=== PATIENT | female | born 1930 | race Caucasian/White ===

== ENCOUNTER 2018-11-26 19:19 | Emergency (ER) | payer OTHER ==
[~2018-11-26] VITALS: Ht 162.6 cm; Wt 49.9 kg
[2018-11-26] MEDS ORDERED: LISINOPRIL10 MG PO (19:42)
[2018-11-26] MEDS ORDERED: FOLIC ACID1 MG PO (19:42)
[2018-11-26] MEDS ORDERED: BIOTIN0.5 GM MC (19:43)
[2018-11-26] MEDS ORDERED: METHOTREXATE 22.5 MG PO (19:43)
[2018-11-26] MEDS ORDERED: ALEVE220 M1 PO (19:44)
[2018-11-26 20:46] LABS: ABSOLUTE BASOPHILS 0.1 thou/uL (0.0-0.2); ABSOLUTE EOSINOPHILS 0.1 thou/uL (0.0-0.7); ABSOLUTE LYMPHOCYTES 1.7 thou/uL (0.8-5.3); ABSOLUTE MONOCYTES 0.3 thou/uL (0.0-1.2); ABSOLUTE NEUTROPHILS 3.6 thou/uL (1.6-8.1); BASOPHILS 1.3 %; EOSINOPHILS 2.3 %; HEMATOCRIT 30.8 % (37.0-47.0); HEMOGLOBIN 9.8 gm/dL (12.0-15.0); MCHC 31.9 g/dL (28.0-37.0); MCV 78.4 fL (80.0-100.0); MONOCYTES 5.6 %; MPV 7.3 fl. (7.2-11.1); NUCLEATED RBCS 0 /100WBC; PLATELET COUNT* 325 thou/uL (150-400); POLYS 61.8 %; RBC 3.93 mil/uL (4.20-5.00); RDW-CV 20.4 % (10.5-14.5); WBC 5.8 thou/uL (4.0-11.0)
[2018-11-26 20:57] LABS: ALBUMIN 3.3 g/dL (3.4-5.0); CALCIUM 8.9 mg/dL (8.5-10.1); CREATININE 0.9 mg/dL (0.6-1.3); POTASSIUM 4.2 mmol/L (3.5-5.1)
[2018-11-26 20:58] LABS: URINE BILIRUBIN NEGATIVE (Negative); URINE BLOOD NEGATIVE (Negative); URINE CLARITY CLEAR; URINE COLOR YELLOW; URINE GLUCOSE-RANDOM NEGATIVE (Negative); URINE KETONES NEGATIVE (Negative); URINE LEUKOCYTES-REFLEX TRACE (Negative); URINE NITRITE-REFLEX NEGATIVE (Negative); URINE PROTEIN NEGATIVE (Negative); URINE SPECIFIC GRAVITY 1.025 (1.005-1.030)
[2018-11-26 21:06] LABS: SQUAMOUS >10 Many /LPF (0-3)
[2018-11-26 21:07] LABS: BACTERIA-REFLEX 1-9 Few /HPF (None Seen); CRYSTALS None Seen /LPF (None Seen); HYALINE CASTS 4-10 Moderate /LPF (None Seen); MUCUS None Seen strn/LPF (None Seen); URINE WBC-REFLEX 6-15 Few /HPF (0-5)
[2018-11-26 21:08] LABS: URINE RBC 0-2 Rare /HPF (0-2)
[2018-11-26 21:13] LABS: ANISOCYTOSIS 2+; MICROCYTES 1+; OVALOCYTES 1+; PLATELET ESTIMATE ADEQUATE
[2018-11-26 21:26] LABS: TOTAL BILIRUBIN 0.5 mg/dL (<0.1-1.0); TOTAL PROTEIN 6.9 g/dL (6.4-8.2)
[2018-11-26] MEDS ORDERED: NORCO 5-325 TA1 EACH PO (21:36)
[2018-11-26] MEDS ORDERED: KEFLEX500 M1 PO (21:36)
[2018-11-26 21:53] LABS: ESR (SEDRATE) 37 mm/hr (0-30)
[2018-11-26 22:12] VITALS: BP 164/108
--- NOTE | 2018-11-27 10:44 | EKG ---
[place] [address] ELECTROCARDIOGRAM REPORT Name: DANIEL ZHU [id number] Admission: 11/26/18 Attend Phys: Discharge: 11/26/18 Date of : 34 Report #: [id number] THIS REPORT FOR: //name// [facility] ED Test Date: 2018-11-26 Test Time: 21:11:46 Pat Name: DANIEL ZHU Department: Room: Gender: F Post Anesthesia Nurse: SRIDHAR : 1930 Requested By: Raquel Vera Order Number: [id number] MD: Too Pop Measurements Intervals [place] Rate: 63 P: 54 NE: 235 QRS: -36 QRSD: 172 T: 150 QT: 484 QTc: 496 Interpretive Statements Sinus rhythm Atrial premature complex Prolonged NE interval Left bundle branch block No previous ECG available for comparison Electronically Signed On 11-27-2018 10:44:41 CDT by Too Pop [email or web address] <ELECTRONICALLY SIGNED> By: Too Pop MD, [facility] 11/27/18 1044 10 10 Too Pop MD, FACC /EPI
== END 2018-11-26 22:13 | disposition home or self-care (01) ==
LOC: M.ERS 19:19
PROVIDERS: Nurse Practitioner Family
DX: N39.0 Urinary tract infection, site not specified (principal); M25.572 Pain in left ankle and joints of left foot; R60.0 Localized edema; I10 Essential (primary) hypertension; Z88.8 Allergy status to other drugs, medicaments and biological substances

== ENCOUNTER 2018-11-30 21:56 | Inpatient (IN) | payer OTHER ==
[~2018-11-30] VITALS: Ht 157.5 cm; Wt 47.2 kg
--- NOTE | ~2018-11-30 | OP ---
[address] [address] OPERATIVE REPORT Name: DAINEL ZHU Room: [address] IN .R.#: [id number] Admission: 11/30/18 Attend Phys: Donta Chandler Discharge: Date of : 32 Report #: [id number] THIS REPORT FOR: //name// CC: Umang Ayers DATE OF SURGERY: 12/02/2018 PREOPERATIVE DIAGNOSIS: Right periprosthetic proximal femur fracture, displaced, closed. POSTOPERATIVE DIAGNOSIS: Right comminuted periprosthetic proximal femur fracture, comminuted, displaced, closed with a loose cemented stem. PROCEDURE: 1. Open reduction and internal fixation of right proximal femur periprosthetic fracture, comminuted, closed, displaced. 2. Revision nery hip arthroplasty from a cemented stem to diaphyseal press-fit stem. 3. Physician directed fluoroscopy. SURGEON: Ulisses Tang DO ASSISTANTS: 1. Tariq Camarena DO 2. Aidan Camarena DO ANESTHESIA: General. ANTIBIOTICS: Ancef IV preoperatively and we had redosed at 4-hour jorge luis. FLUIDS: 2000 mL lactated Ringer's, 2 units packed red blood cells, 500 mL albumin. URINARY OUTPUT: 250 mL. COMPLICATIONS: None. SPECIMENS: None. DRAINS: None. CONDITION: The patient is stable to PACU. IMPLANTS: Biomet Bren system with 16 x 190 mm distal stem with 80 mm A body +3 neck adapter and bipolar 50 mm. Man NCB periprosthetic plating system with troch attachment plate, locking screws into the troch, 2 [place] [address] OPERATIVE REPORT Name: DANIEL ZHU Racheal Room: [address] IN M.R.#: [id number] Admission: 11/30/18 Attend Phys: Donta Chandler Discharge: Date of : 32 Report #: [id number] distally and 1 unicortical locking distally, 1 unicortical locking proximally, 1 cable underneath the plate and 3 cables around the plate and bone. INDICATIONS: The patient is an 88-year-old female who was admitted to [facility] with a periprosthetic proximal femur fracture. I had long discussions with her and multiple family members of hers including children. We talked about treatment options, plan for surgery as well as the risks and complications associated. Please see my consultation note for full details of discussion we had, not only the night before surgery but today. After addressing any questions that they had in their stated satisfaction, we obtained their consent to proceed with surgery. DESCRIPTION OF PROCEDURE: I marked the right lower extremity in the presence of the operative team members. Everyone agreed this was correct. She was taken back to the operative suite where a briefing was performed indicating correct patient, procedure, site, antibiotic and the implants were present and sterile. We also confirmed that with her preoperative hemoglobin, we were going to be running 1 unit packed red blood cells with the second unit on hold. She was intubated and transferred over to the operative table. She was placed in the left lateral decubitus position with the right leg up. She was well padded and secured appropriately. Right lower extremity was then sterilely prepped and draped in standard fashion. Timeout was performed indicating correct patient, procedure, site and antibiotic and the implants were present and sterile and confirmed that we were running 1 unit of blood, put 1 on hold. All team members agreed. We marked out our incision. We used her previous incision. This incision was cheated quite posteriorly. We therefore curved this up anteriorly for access to the fracture site as we would need to be able to gain reduction of this. Scalpel was taken through skin. Dissection was taken down, maintaining hemostasis. The IT band and fascial layers incised through this. Midvastus approach was used to gain access to the fracture. She had already buttonholed through this and we were seeing one of the bone fragments. As we continued this down, we visualized that there was a spiral component. The spiral component went quite distal. This was not appreciated on the preoperative films. We continued dissecting proximally. We can see our stem. It became readily identifiable that there was a third fracture fragment. The anterior piece was actually a completely separate piece from the posterior aspect and there was a fracture running all the way up to the trochanter. This split the trochanter into 2 pieces. The stem was grossly unstable and would need to be revised. We therefore performed an anterolateral approach for a standard. Capsule was incised. T capsulotomy performed. The hip was able to be dislocated and the stem again was grossly unstable and easily removed, was a cemented stem and this did have some bone in the proximal segment being attached to the cemented stem that had already happened prior to us getting in. With the stem removed on the back table, we saw the size of the bipolar which was 50 mm. At that point in time, we used a handheld bur and a combination of careful rongeur to remove the cement that was attached to the femur. Once we had completely cleared the canal [address] [address] OPERATIVE REPORT Name: DANIEL ZHU Room: [address]#: [id number] Admission: 11/30/18 Attend Phys: Donta Chandler Discharge: Date of : 32 Report #: [id number] of all remaining cement, we thoroughly irrigated with normal saline throughout the entirety of the procedure so as the bur would not get too hard along the bone. Bone was then removed. We then irrigated with normal saline throughout the entirety of the surgical field. We were able to place catjz-vg-vefer clamps to hold our reduction. With our reduction being confirmed on multiplanar C-arm imaging to be excellent, we then placed a cable to hold the reduction and we then crimped that cable in place and placed the grommet along anteriorly as we would be leaving the soft bone and the plate would be placed over it. ____ this with a combination of zmgih-fv-mwcua clamps with the remaining comminuted segments proximally, we were able to begin pinning. We placed a trial 16 reamer. This had excellent chatter and was ____ stem. We brought in the C-arm and confirmed on multiplanar C-arm imaging that that stem was appropriate in size and it was well passed at least our main fracture fragment where the mid aspect of the spiral component would be and passed this; however, that spiral component continued down quite distally. There would be no stem that would adequately pass all with it in its entirety. We then through the final Bren 16 mm x 190 mm onto the back table, irrigated out the canal with normal saline and then cleaned this. It sat down the exact same location as our reaming, which was that 80 mm of the top of the trochanter. We therefore reamed for an A body. This was appropriate in size and placed an A 80 mm body trial, engaged the screw, placed in the appropriate amount of version. I then trialled our head and neck. A standard had a good range of motion; however, with deep flexion and external rotation, it did pop out. We would therefore need something higher likely. The A 80 mm body was appropriate, though. We therefore removed the trial components through the final A 80 mm body on to the back table. We engaged this and seated it down appropriately, getting our version appropriate. Once this was in appropriate position, we then engaged the screw using the torque limiter and it was fully engaged appropriately. At that point in time, we then trialled a +3 adapter with 50 mm bipolar. This had good stability, reduced nicely. Full range of motion was taken and there was no instability throughout any range of motion including deep flexion and external rotation and was stable in regards to Shuck testing. At that point in time, we then dislocated the hip and through the final +3 neck adapter and 50 mm head on to the back table, this was engaged with the Tanner taper, confirmed by not being able to remove. At this point in time, all final components were in place. We reduced the hip. With all final components in place, we took the hip through range of motion and was pulled throughout all arcs with no instability whatsoever. Shuck test was appropriate. We brought in C-arm and confirmed that the hip was well reduced. We also took the hip through range of motion under live C-arm fluoroscopy and there was no levering or evidence of instability under direct fluoroscopy visualization. Due to the fact that this was a very unstable periprosthetic fracture with comminution and extending distally, we therefore went ahead and applied our NCB periprosthetic femoral plate. We did have to use a tabletop villalpando as I could not bend this so that we could get around the metaphyseal flare for a screw into the distal femur ____ proximally. Once we performed that bending, we then pinned it in position, began by soaking [address] [place] [address] OPERATIVE REPORT Name: DANIEL ZHU Room: [address] IN [facility]#: [id number] Admission: 11/30/18 Attend Phys: Donta Chandler Discharge: Date of : 32 Report #: [id number] down to bone distally. The screw had adequate purchase. Our second cortical screw had adequate purchase as well. We then aimed our third fan blade aligner so that we could span the entire femur and this was placed in a unicortical fashion with locking end cap placed. At that point in time, we then passed carefully our remaining cables, passed them, tensioned them down appropriately, fashioned our trochanter plate once ____ plate and drilled and placed appropriate locking screws there. These did get into the trochanter and stabilize this quite nicely. We also reinforced with suture. We brought in final C-arm imaging and showed excellent placement of our hardware. Great fracture reduction and placement of our prosthesis. We saved final images of the C-arm. We irrigated throughout with normal saline. We reclosed our capsule layer with #1 Vicryl oilhtc-il-spqpc interrupteds for an excellent closure. The gluteus were attached back onto the trochanter as well as through the plate with #5 Tycron through bone sutures. This laid down over quite nicely showing that we had restored her normal length and not given her any increased offset that would be outside of her normal anatomy. With that tied down, we oversewed with #1 Vicryl. We also oversewed around the trochanter as that bone was quite tenuous and even though there were locking screws into this, we reinforced suture through the plate. We reirrigated with normal saline and closed our vastus deep fascial layers with 0 Vicryl thkwot-bu-rqlis interrupted. IT band and fascial layer was closed with 0 Vicryl dsahnr-ah-oisiw interrupted and oversewn with #1 Stratafix barbed suture. Irrigated subcutaneous layer with normal saline and closed this with 2-0 Monocryl buried deep and eva for skin. Debriefing was performed where we confirmed the procedure, blood loss and that all counts were correct and final. All team members agreed. The patient was extubated and taken to PACU. She was overall stable. I spoke with multiple family members, addressed any questions they had. They were very thankful for my time and efforts and appreciated everything I have done. She was resting in the PACU, continued to have stable vital signs. Neurovascularly, she was intact in that extremity. PACU films showed stable internal fixation, reduction and prosthesis. No fractures or dislocations seen. She will be toe touch weightbearing. DVT prophylaxis will be pharmacologic and mechanical. My recommendation is that she go to the ICU. Directly contacted the admitting hospitalist, Dr. Beatty, and discussed with him our surgical findings and the fluids given during surgery as well as urinary output and he came to evaluate the patient in the PACU and agreed with her ICU status. I made sure the family members, nursing staff as well as Dr. Beatty have access to my personal cell phone number and encouraged them to call me any time with questions or concerns. By: [id number] Tang DO /huang
[~2018-11-30 21:56] MED LIST: ALEVE220 M1 PO; BIOTIN0.5 GM MC; FOLIC ACID1 MG PO; KEFLEX500 M1 PO; LISINOPRIL10 MG PO; METHOTREXATE 22.5 MG PO; NORCO 5-325 TA1 EACH PO
[2018-11-30 21:57] VITALS: BP 164/76
[2018-11-30 22:40] LABS: ABSOLUTE EOSINOPHILS 0.1 thou/uL (0.0-0.7); ABSOLUTE LYMPHOCYTES 1.2 thou/uL (0.8-5.3); ABSOLUTE MONOCYTES 0.6 thou/uL (0.0-1.2); ABSOLUTE NEUTROPHILS 4.6 thou/uL (1.6-8.1); BASOPHILS 0.7 %; EOSINOPHILS 2.2 %; HEMATOCRIT 29.5 % (37.0-47.0); HEMOGLOBIN 9.4 gm/dL (12.0-15.0); LYMPHOCYTES 18.9 %; MCH 25.2 pg (26.0-34.0); MCV 78.7 fL (80.0-100.0); MONOCYTES 8.6 %; MPV 7.5 fl. (7.2-11.1); NUCLEATED RBCS 0 /100WBC; PLATELET COUNT* 295 thou/uL (150-400); POLYS 69.6 %; RBC 3.75 mil/uL (4.20-5.00); RDW-CV 20.5 % (10.5-14.5); WBC 6.6 thou/uL (4.0-11.0)
[2018-11-30 22:59] LABS: PROTIME 10.7 Seconds (9.20-11.50)
[2018-11-30 23:00] LABS: ANION GAP 4 mmol/L (7-16); BUN 25 mg/dL (7-18); CALCIUM 8.4 mg/dL (8.5-10.1); CHLORIDE 106 mmol/L (98-107); CO2 27 mmol/L (21-32); CREATININE 1.4 mg/dL (0.6-1.3); GLUCOSE 116 mg/dL (70-99); POTASSIUM 4.1 mmol/L (3.5-5.1); SODIUM 137 mmol/L (136-145); TROPONIN-I LEVEL <0.06 ng/mL (<0.06)
[2018-11-30 23:02] LABS: ALKALINE PHOSPHATASE 129 U/L (46-116); SGOT 17 U/L (15-37); SGPT 14 U/L (30-65); TOTAL BILIRUBIN 0.4 mg/dL (<0.1-1.0); TOTAL PROTEIN 6.3 g/dL (6.4-8.2)
[2018-11-30 23:11] LABS: ANISOCYTOSIS 2+; MICROCYTES 1+; OVALOCYTES Occasional; PLATELET ESTIMATE ADEQUATE
[2018-11-30 23:12] LABS: POLYCHROMASIA Occasional
[2018-12-01 00:50] VITALS: BP 150/70
[2018-12-01 01:10] VITALS: BP 145/60
--- NOTE | 2018-12-01 05:15 | NUR ---
PT ARRIVED ON UNIT AT 0100 ALERT AND ORIENTED VSS. PT ASSISTED TO BED ORIENTED TO SURROUNDINGS. PT HAD MEI PLACED AND BUCKS TRACTION HAD PAIN MEDS TWICE THEN SLEPT WILL CONTINUE PLAN OF CARE.
[2018-12-01 08:00] VITALS: BP 135/56
[2018-12-01 08:06] LABS: URINE BILIRUBIN NEGATIVE (Negative); URINE BLOOD TRACE (Negative); URINE CLARITY CLEAR; URINE COLOR YELLOW; URINE GLUCOSE-RANDOM NEGATIVE (Negative); URINE KETONES TRACE (Negative); URINE LEUKOCYTES-REFLEX NEGATIVE (Negative); URINE NITRITE-REFLEX NEGATIVE (Negative); URINE PROTEIN NEGATIVE (Negative); URINE UROBILINOGEN 0.2 E.U./dl (0.2-1.0)
--- NOTE | 2018-12-01 15:48 | NUR ---
PT.IN SURGERY THIS AFTERNOON. CM WILL SEE TOMORROW.
--- NOTE | 2018-12-01 17:08 | EKG ---
[place] [address] ELECTROCARDIOGRAM REPORT Name: DANIEL ZHU Room: [address] ADM IN .R.#: [id number] Admission: 11/30/18 Attend Phys: Donta Chandler Discharge: Date of : 32 Report #: [id number] THIS REPORT FOR: //name// [facility] ED Test Date: 2018-11-30 Test Time: 23:22:45 Pat Name: DANIEL ZHU Department: Room: [facility] Gender: F Assurance Analyst: SANGITA : 1930 Requested By: Nicole Chiu Order Number: [id number] MD: Spencer Escobar Measurements Intervals [place] Rate: 62 P: 55 HI: 248 QRS: -34 QRSD: 169 T: 147 QT: 496 QTc: 504 Interpretive Statements Sinus rhythm Prolonged HI interval Left bundle branch block Compared to ECG 11/26/2018 21:11:46 Atrial premature complex(es) no longer present Electronically Signed On 12-01-2018 17:08:37 CDT by Spencer Escobar [email or web address] <ELECTRONICALLY SIGNED> By: Spencer Escobar MD, FACC 12/01/18 1708 2322 [id number] Spencer Escobar MD, [facility] /EPI
--- NOTE | 2018-12-01 19:01 | NUR ---
PT REMAINED A&Ox4 THROUGHOUT SHIFT. SURGERY NOT DONE TODAY, SCHEDULED FOR THE AM. REMAINED ON BEDREST WITH BUCKS TRACTION IN PLACE. PAIN CONTROLLED WITH FENTANYL. IV L FA PATENT, INFUSING. DIET TOLERATED. NPO AFTER MIDNIGHT. MEI PATENT. HOURLY ROUNDING COMPLETE. FALL PRECAUTIONS IN PLACE.CALL LIT WITHIN REACH.
[2018-12-01 20:15] VITALS: BP 152/65
[2018-12-02] VITALS (16 sets, daily range): BP systolic 114–155; BP diastolic 50–79
--- NOTE | 2018-12-02 00:22 | NUR ---
INITAL ASSESMENT COMPLETED AT 2014. PT REMAINS IN BUCKS TRACTION FOR FRACTURE OF RIGHT FEMUR. PT NPO AFTER MIDIGHT FOR ORIF OF RIGHT FEMUR. PT RECIEVING IV FENTANYL FOR PAIN WITH GOOD RESULTS. CALL LIGHT IN REACH, PT USING PROPERLY.
[2018-12-02 04:20] LABS: ABSOLUTE EOSINOPHILS 0.1 thou/uL (0.0-0.7); ABSOLUTE MONOCYTES 0.2 thou/uL (0.0-1.2); ABSOLUTE NEUTROPHILS 3.8 thou/uL (1.6-8.1); BASOPHILS 0.9 %; HEMATOCRIT 22.4 % (37.0-47.0); LYMPHOCYTES 18.9 %; MCH 25.1 pg (26.0-34.0); MCHC 31.9 g/dL (28.0-37.0); MCV 78.6 fL (80.0-100.0); MONOCYTES 4.7 %; MPV 7.3 fl. (7.2-11.1); NUCLEATED RBCS 0 /100WBC; PLATELET COUNT* 230 thou/uL (150-400); POLYS 74.5 %; RBC 2.85 mil/uL (4.20-5.00); RDW-CV 20.4 % (10.5-14.5); WBC 5.1 thou/uL (4.0-11.0)
[2018-12-02 04:38] LABS: CALCIUM 8.2 mg/dL (8.5-10.1); CREATININE 0.7 mg/dL (0.6-1.3); HEMOGLOBIN 7.1 gm/dL (12.0-15.0); POTASSIUM 4.1 mmol/L (3.5-5.1)
--- NOTE | 2018-12-02 05:44 | NUR ---
PT NPO AFTER MIDNIGHT FOR SURGURY THIS AM. PT MAINTAINED IN BUCKS TRACTION THROUGHOUT SHIFT. PT'S HEART RATE, BLOOD PRESSURE AND O2 SAT WITHIN NORMAL LIMITS. PT AFEBRILE DURING SHIFT. PT RECIEVING IV FENTANYL FOR PAIN WITH GOOD RESULTS. NO ACUTE CHANGES, WILL CONTINUE TO MONITOR.
[2018-12-02 06:16] LABS: OVALOCYTES 1+; PLATELET ESTIMATE ADEQUATE
[2018-12-02 06:17] LABS: ANISOCYTOSIS 1+; MICROCYTES 1+; POIKILOCYTOSIS 1+; POLYCHROMASIA Occasional
--- NOTE | 2018-12-02 13:20 | NUR ---
UNABLE TO ASSESS PT, WENT FOR SURGERY BEFORE SHIFT CHANGE AND WILL BE TANSFERING FROM ICU STRAIGHT FROM PACU.
[2018-12-02 14:11] LABS: HEMATOCRIT 23.2 % (37.0-47.0); HEMOGLOBIN 7.5 gm/dL (12.0-15.0)
[2018-12-02 14:50] LABS: CREATININE 0.8 mg/dL (0.6-1.3); POTASSIUM 4.7 mmol/L (3.5-5.1)
--- NOTE | 2018-12-02 18:13 | NUR ---
12/02 Days: Transfer from the PACU post Right hip revision arthroplasty with femur fracture. To ICU for close monitoring d/t soft B/P and fair blood loss. 2 unit PRCB were given in OR. Patient stable, vitals within normal range. Repeat H&H at 2000 and in the am. PRN Levo if needed on eMAR.
[2018-12-02 20:12] LABS: HEMOGLOBIN 8.4 gm/dL (12.0-15.0)
[2018-12-03] VITALS (14 sets, daily range): BP systolic 94–139; BP diastolic 38–60
[2018-12-03 04:28] LABS: HEMATOCRIT 20.8 % (37.0-47.0); MCH 26.8 pg (26.0-34.0); MCHC 32.7 g/dL (28.0-37.0); MCV 81.8 fL (80.0-100.0); MPV 7.5 fl. (7.2-11.1); RBC 2.54 mil/uL (4.20-5.00); RDW-CV 19.1 % (10.5-14.5); WBC 8.7 thou/uL (4.0-11.0)
[2018-12-03 05:04] LABS: ALBUMIN 1.9 g/dL (3.4-5.0); CALCIUM 7.2 mg/dL (8.5-10.1); MAGNESIUM 1.6 mg/dL (1.8-2.4); POTASSIUM 4.3 mmol/L (3.5-5.1); TOTAL BILIRUBIN 0.6 mg/dL (<0.1-1.0); TOTAL PROTEIN 4.5 g/dL (6.4-8.2)
[2018-12-03 05:24] LABS: HEMOGLOBIN 6.8 gm/dL (12.0-15.0)
--- NOTE | 2018-12-03 07:00 | NUR ---
Pt's Hgb 6.8 this am. VSS. 1 unit PRBCs ordered to be transfused, and pt transferred to 2E, room 226. Dc'd from unit per bed. Pt's dtrs informed of transfer and updated on pt status.
--- NOTE | 2018-12-03 10:16 | NUR ---
MEDICARE CONTACT SPECIALIST SPOKE TO THE PATIENT TO DISUCSS HER HOME SITUATION, DISCHARGE PLANNING, AND TO INFORM OF THE ROLE OF CM. PATIENT ALERT AND ORIENTED. 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 PATIENT RESIDES AT HOME WITH HER DTR AND THE PATIENT INFORMS THAT HER DTR WORKS HERE IN THE HOSPITAL. PATIENT'S DTR ASSIST WITH TRANSPORTATION TO APPTS AND IS ABLE TO ASSIST HER AT D/C NEEDED. PATIENT OWNS 0 DME. PATIENT HAS A HX OF HH IN THE PAST AFTER A PREVIOUS HIP SX. PATIENT HAS NO HX OF SNF. PATIENT INFORMS THAT SHE IS OPEN TO ACUTE INPATIENT REHAB HERE IN THE HOSPITAL, OR SKILLED AT D/C IF NEEDED. D/C REIMBURSEMENT ANALYST CONTACTED THE CDA TEACHER HERE IN THE HOSPITAL TO HAVE HER REVIEW THE PATIENT TO SEE IF SHE MAY BE APPROPRIATE FOR ACUTE REHAB AT D/C. CM WILL REMAIN AVAILABLE TO ASSIST AND FOLLOW NEEDED.
[2018-12-03 12:08] LABS: HEMATOCRIT 22.8 % (37.0-47.0); HEMOGLOBIN 7.5 gm/dL (12.0-15.0)
--- NOTE | 2018-12-03 20:30 | NUR ---
I ASSUMED CARE OF THE PATIENT AT 0700. SHE IS ALERT AND ORIENTED X4 AND IS ON BEDREST. SHE HAS A HIP ABDUCTOR IN PLACE. HOURLY ROUNDING OCCURRED AND PATIENT NEEDS WERE MET. PAIN IS MANAGED WITH PRN MEDS. SHE HAD NEW XRAYS TODAY AND LEFT FOOT IS NOT BROKEN. ICE PACKS ARE IN PLACE AND SHE IS BEING REPOSITIONED EVERY 2 HOURS. BED IS IN THE LOW LOCKED POSITION AND CALL LIGHT IS IN REACH. WILL CONTINUE TO MONITOR. BLOOD GIVEN AND CHARTED IN INTERVENTIONS. FAMILY IS AT THE BEDSIDE MOST OF THE DAY. MEPLEX ON RIGHT HIP IS CLEAN/DRY/INTACT.
[2018-12-04 04:00] VITALS: BP 136/53
--- NOTE | 2018-12-04 04:48 | NUR ---
PT CARE ASSUMED AT 1930. ALERT AND ORIENTED X4. SAT MAINTAINED IN RA. CALL LIGHT WITHIN REACH AND BED IN LOW POSITION. C/O PAIN, MEDICATION GIVEN PER EMAR. DRESSING SITE C/D/I. MEI IN PLACE AND DRAINING. HOURLY ROUNDING DONE FOR PT SAFETY.
[2018-12-04 04:49] LABS: HEMATOCRIT 21.8 % (37.0-47.0); HEMOGLOBIN 7.2 gm/dL (12.0-15.0); MCH 27.1 pg (26.0-34.0); MCV 82.2 fL (80.0-100.0); MPV 7.7 fl. (7.2-11.1); RBC 2.65 mil/uL (4.20-5.00); RDW-CV 17.8 % (10.5-14.5); WBC 6.1 thou/uL (4.0-11.0)
[2018-12-04 05:12] LABS: CALCIUM 7.5 mg/dL (8.5-10.1); CREATININE 0.7 mg/dL (0.6-1.3); MAGNESIUM 1.8 mg/dL (1.8-2.4); POTASSIUM 3.7 mmol/L (3.5-5.1)
[2018-12-04 09:19] VITALS: BP 143/56
[2018-12-04 12:19] VITALS: BP 141/61
[2018-12-04 15:01] VITALS: BP 147/56; BP 154/70; BP 158/62; BP 158/66
[2018-12-04 16:00] VITALS: BP 151/53
--- NOTE | 2018-12-04 17:24 | NUR ---
PT REMAINED ALERT AND ORIENTED THROUGHOUT SHIFT. VITALS STABLE. RECEIVING 1 UNIT OF BLOOD, INFUSING CURRENTLY, TOLERATING. IV IN R FA PATENT. MEI PATENT. DRESSING REMAINED CLEAN, DRY AND INTACT. ABDUCTOR PILLOW IN PLACE. PAIN CONTROLLED WITH OXY IR. MAINTAINED TOE TOUCH WB ON R LEG. FAMILY IN ROOM DURING SHIFT. FALL PRECAUTIONS IN PLACE. CALL LIGHT WITHIN REACH. WILL CONTINUE TO MONITOR.
[2018-12-04 18:57] LABS: HEMATOCRIT 28.3 % (37.0-47.0)
[2018-12-04 18:59] LABS: HEMOGLOBIN 9.7 gm/dL (12.0-15.0)
[2018-12-04 20:00] VITALS: BP 165/65
[2018-12-05] VITALS: BP 151/65
[2018-12-05 03:54] VITALS: BP 150/74
--- NOTE | 2018-12-05 04:52 | NUR ---
PT CARE ASSUMED AT 1930. ALERT AND ORIENTED X4. SAT MAINTAINED IN RA. DRESSING C/D/I. CALL LIGHT WITHIN REACH AND BED IN LOW POSITION. C/O PAIN, MEDICATION GIVEN PER EMAR. HOURLY ROUNDING DONE FOR PT SAFETY.
[2018-12-05 04:56] LABS: HEMATOCRIT 27.6 % (37.0-47.0); HEMOGLOBIN 9.5 gm/dL (12.0-15.0); MCH 28.5 pg (26.0-34.0); MCHC 34.3 g/dL (28.0-37.0); MPV 7.5 fl. (7.2-11.1); RBC 3.32 mil/uL (4.20-5.00); RDW-CV 17.6 % (10.5-14.5); WBC 7.4 thou/uL (4.0-11.0)
[2018-12-05 05:15] LABS: CALCIUM 7.7 mg/dL (8.5-10.1); CREATININE 0.6 mg/dL (0.6-1.3); MAGNESIUM 1.7 mg/dL (1.8-2.4); POTASSIUM 3.3 mmol/L (3.5-5.1)
--- NOTE | 2018-12-05 11:36 | NUR ---
CONTINUE TO FOLLOW, MET WITH PT TO DISCUSS DC PLAN/SNF. PT WANTED CM TO TALK WITH HER DTR/ELA [phone]. CALLED AND LEFT VMAIL.
[2018-12-05 12:53] VITALS: BP 144/65
[2018-12-05 16:12] VITALS: BP 139/77
--- NOTE | 2018-12-05 18:54 | NUR ---
PT VSS THIS SHIFT RUNNING SR, BBB, WITH PVC'S ON THE MONITOR. PT HAS HAD SOME HYPOTENSION THIS ADMISSION. PT TOLERATING RA THIS SHIFT. PT HAS MINIMAL PAIN RESOLVED BY PAIN MEDICATIONS. PT PASSING FLATUS THIS SHIFT. PT HAS AMBULATION AND WEIGHT RESTRICTIONS ORDERED AND IS A Q2 TURN. PT HAS SWELLING TO LLE. SURGERY DRESSING IS CDI WITH SCANT DRAINAGE NOTED THIS SHIFT, ORDERS TO MAINTAIN DRESSING PER ORTHO. PT TO BE EVALUATED BY REHAB. PT FAMILY STATES IT IS OKAY TO CALL AT ANY TIME OF THE DAY/NIGHT IF PT WANTS TO SPEAK WITH THEM. PT HAD ELECTROLYTES REPLACED AND NEEDS ANOTHER DOSE OF MAG 400 MG THIS EVENING WITH A REDRAW IN THE MORNING. HOURLY ROUNDING MAINTAINED
[2018-12-05 20:30] VITALS: BP 131/72
[2018-12-06] VITALS: BP 140/75
[2018-12-06 04:00] VITALS: BP 146/78
--- NOTE | 2018-12-06 04:53 | NUR ---
PT CARE ASSUMED AT 1930. SAT MAINTAINED IN RA. ALERT AND ORIENTED X4. CALL LIGHT WITHIN REACH AND BED IN LOW POSITION. ABDUCTOR PILLOW IN PLACE. DENIES PAIN AND SOB. TALKED WITH PT'S DAUGHTER, SAYS WE CAN CALL HER ANYTIME IF HER MOTHER WANTS TO TALK WITH THEM. HOURLY ROUNDING DONE FOR PT SAFETY.
[2018-12-06 12:00] VITALS: BP 142/77
--- NOTE | 2018-12-06 18:32 | NUR ---
PT VSS THIS SHIFT AND PAIN WELL CONTROLLED. DR JOSÉ RETURNED PAGE THIS SHIFT TO ADDRESS AND CLARIFY ORDERS REGARDING ABDUCTION PILLOW AND AMBULATION. AN ANKLE BRACE WAS ORDERED AND BROUGHT FOR PT DUE TO INCREASED PAIN WITH STANDING. PT WAS PROVIDED WITH BOWEL MEDICATIONS THIS SHIFT AND SHE WAS ABLE TO HAVE A BOWEL MOVEMENT. DR SINGH WROTE TO Racheal/Nik MEI BUT CONCERNS ADDRESSED WITH PT AMBULATION STATUS FROM THIS RN , PT FAMILY AND PHYSICAL THERAPY. DR GRZEGORZ GARCIAAY FOR HAMIDA TO REMAIN AT THIS TIME UNTIL PHYSICAL THERAPY FEELS SHE CAN PIVOT BETTER TO THE COMMODE, ORDER PLACED. ISOLATION AND HOURLY ROUNDING MAINTAINED THIS SHIFT. WILL CONTINUE TO MONITOR AND ASSESS.
[2018-12-06 20:10] VITALS: BP 148/77
--- NOTE | 2018-12-06 21:19 | NUR ---
PT CARE ASSUMED AT 1930. ALERT AND ORIENTED X4. CALL LIGHT WITHIN REACH AND BED IN LOW POSITION. SAT MAINTAINED IN RA. MEI IN PLACE AND DRAINING. HIP ABDUCTOR PILLOW IN PLACE. PT TRANSFERRED TO AT 2099.
[2018-12-06 21:20] VITALS: BP 147/71
--- NOTE | 2018-12-07 05:39 | NUR ---
PT TRANSFERED TO ROOM 310, REPORT RECIEVED FROM TOPOGRAPHIC COMPUTATOR. PT ORIENTED TO ROOM, CALL LIGHT SHOWN, PT STATED UNDERSTANDING. PTS FAMILY REMAINED AT BEDSIDE. ASSESSMENT DOCUMENTED. MEDS GIVEN PER E-MAR. IV PATENT, FLUIDS INFUSING. PT REPORTED NO PAIN OR NAUSEA THIS SHIFT. HIP PRECAUTIONS MAINTAINED. DRESSING REMAINED DRY AND INTACT, WITH MINIMAL DRAINAGE. WILL CONTINUE WITH PLAN OF CARE.
[2018-12-07 09:00] VITALS: BP 143/68
--- NOTE | 2018-12-07 14:30 | NUR ---
Nutrition: Pt assessed for LOS. Admitted with femur FX. Chopped diet. Wt: 103#. BG ok, alb 1.9, prealb 15.3. Increased nutrient needs R/T protein AEB labs above. RD ordered Beneprotein bid for added protein. Consider Mild risk.
[2018-12-07 16:22] VITALS: BP 128/69
--- NOTE | 2018-12-07 16:36 | NUR ---
SW called pt dtr this morning to discuss dc planning and arranged for pt dtr to call SW sometime after 3 pm to be able to meet with 2 of pt's dtrs. JESUS MANUEL discussed inpt rehab consult with admissions rehab department manager, Obdulia, and the consult is still pending due to pt ability to participate in therapies. SW to continue to follow to assist with safe dc planning.
--- NOTE | 2018-12-07 19:01 | NUR ---
PATIENT HAS BEEN A/O X 4, FORGETFUL AT TIMES. MEDICATED FOR PAIN X 1 WITH GOOD RELIEF. PATIENT UP TO BSC WITH MAX ASSIST. TTWB TO RIGHT LEG. DRESSING TO RIGHT LEG INTACT. MEI PATENT. SEEN BY PT/OT/ST THIS SHIFT. TURNED EVERY 2 HOURS. VITALS STABLE. FAMILY AT BEDSIDE. HOURLY ROUNDING COMPLETED. CALL LIGHT WITHIN REACH. WILL CONTINUE WITH PLAN OF CARE.
[2018-12-07 21:00] VITALS: BP 149/59
[2018-12-08 04:40] LABS: ABSOLUTE BASOPHILS 0.1 thou/uL (0.0-0.2); ABSOLUTE EOSINOPHILS 0.3 thou/uL (0.0-0.7); ABSOLUTE LYMPHOCYTES 1.1 thou/uL (0.8-5.3); ABSOLUTE MONOCYTES 0.7 thou/uL (0.0-1.2); ABSOLUTE NEUTROPHILS 4.8 thou/uL (1.6-8.1); BASOPHILS 1.3 %; EOSINOPHILS 3.6 %; HEMATOCRIT 27.9 % (37.0-47.0); HEMOGLOBIN 9.3 gm/dL (12.0-15.0); LYMPHOCYTES 15.2 %; MCH 27.5 pg (26.0-34.0); MCHC 33.2 g/dL (28.0-37.0); MCV 82.7 fL (80.0-100.0); MONOCYTES 10.4 %; MPV 7.3 fl. (7.2-11.1); NUCLEATED RBCS 0 /100WBC; POLYS 69.5 %; RBC 3.37 mil/uL (4.20-5.00); RDW-CV 17.9 % (10.5-14.5); WBC 6.9 thou/uL (4.0-11.0)
[2018-12-08 04:43] LABS: CALCIUM 7.7 mg/dL (8.5-10.1); CREATININE 0.6 mg/dL (0.6-1.3); PLATELET COUNT* 329 thou/uL (150-400); POTASSIUM 3.2 mmol/L (3.5-5.1)
--- NOTE | 2018-12-08 06:13 | NUR ---
PATIENT SLEPT MOST OF THE NIGHT. PATIENT WAS TURNED ABOUT EVERY TWO HOURS. MEI REMAINS IN PLACE TO DEPENDENT DRAIN. DRESSING TO RIGHT HIP REMAINS INTACT. PATIENT WAS GIVEN PAIN MEDICINE ONCE THIS SHIFT. WILL CONTINUE TO MONITOR.
[2018-12-08 07:25] VITALS: BP 137/55
--- NOTE | 2018-12-08 14:02 | NUR ---
Obdulia with [facility] inpt rehab informed SW this morning that pt was denied inpt rehab due to pt not likely to be able to tolerate 3 hours of inpt therapies a day. JESUS MANUEL met with pt and discussed other safe dc plan options and pt said she would rather go to SNF and did not feel comfortable or safe returning home yet alone at times. JESUS MANUEL called and discussed above with pt dtr Vivi as well. Both pt and dtr agree that pt would dc to SNF; pt/family preference for [facility]. JESUS MANUEL faxed referral to [facility] ph [phone] fax [phone]. SW to continue to follow to assist with safe dc planning and SNF placement.
[2018-12-08 16:51] VITALS: BP 137/68
--- NOTE | 2018-12-08 19:48 | NUR ---
PATIENT HAS BEEN A/O X 4 THIS SHIFT, SLIGHTLY FORGETFUL AT TIMES. PATIENT MEDICATED FOR PAIN X 2 TODAY WITH GOOD EFFECT. UP WITH TTWB TO RIGHT LEG. PARTICIPATED WITH THERAPIES THIS SHIFT. UP IN CHAIR FOR MOST OF SHIFT. MEI PATENT AND DRAINING. PATIENT USED I.S. THIS SHIFT WITH ASSIST OF RN. PATIENT'S FAMILY AT BEDSIDE THIS SHIFT. FALL PRECAUTIONS IN PLACE. HOURLY ROUNDING COMPLETED. CALL LIGHT WITHIN REACH. WILL CONTINUE WITH PLAN OF CARE.
[2018-12-09 04:07] VITALS: BP 137/73
--- NOTE | 2018-12-09 05:08 | NUR ---
PATIENT SLEPT WELL DURING THIS SHIFT. PT WITH SALINE LOCK IN RT AC. PT WITH REDDENED BOTTOM; PT REPOSITIONED Q2H BUT PT DID REFUSE AT TIMES. PT WITH MEI TO DEPENDENT DRAIN WITH YELLOW URINE. PT ON ROOM AIR. PT DENIES NEEDS AT THIS TIME. FREQUENTLY USED ITEMS AND CALL LIGHT WITHIN REACH. SIDERAILS UPX4 AND BED ALARM ON. WILL CONTINUE TO MONITOR.
[2018-12-09 07:15] VITALS: BP 155/76
[2018-12-09] MEDS ORDERED: ZOLOFT25 MG PO (09:09)
--- NOTE | 2018-12-09 09:41 | NUR ---
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 [facility] INFORMS THAT INSURANCE AUTH HAD NOT BEEN RECEIVED AT THIS TIME. D/C ONCOLOGY NURSE NAVIGATOR FAXED UPDATED PT/OT NOTES. CM WILL REMAIN AVAILABLE TO ASSIST AND FOLLOW NEEDED.
[2018-12-09 10:27] LABS: ABSOLUTE BASOPHILS 0.2 thou/uL (0.0-0.2); ABSOLUTE EOSINOPHILS 0.4 thou/uL (0.0-0.7); ABSOLUTE LYMPHOCYTES 1.6 thou/uL (0.8-5.3); ABSOLUTE MONOCYTES 0.9 thou/uL (0.0-1.2); ABSOLUTE NEUTROPHILS 8.4 thou/uL (1.6-8.1); BASOPHILS 1.4 %; EOSINOPHILS 3.6 %; HEMATOCRIT 33.9 % (37.0-47.0); HEMOGLOBIN 10.9 gm/dL (12.0-15.0); LYMPHOCYTES 14.1 %; MCH 27.2 pg (26.0-34.0); MCHC 32.3 g/dL (28.0-37.0); MCV 84.2 fL (80.0-100.0); MONOCYTES 7.5 %; MPV 6.9 fl. (7.2-11.1); NUCLEATED RBCS 0 /100WBC; POLYS 73.4 %; RBC 4.03 mil/uL (4.20-5.00); RDW-CV 18.5 % (10.5-14.5); WBC 11.4 thou/uL (4.0-11.0)
[2018-12-09 10:28] LABS: PLATELET COUNT* 579 thou/uL (150-400)
[2018-12-09 10:42] LABS: CALCIUM 8.9 mg/dL (8.5-10.1); CREATININE 0.7 mg/dL (0.6-1.3); POTASSIUM 3.7 mmol/L (3.5-5.1)
[2018-12-09 11:50] VITALS: BP 129/65
[2018-12-09 15:05] VITALS: BP 140/64
--- NOTE | 2018-12-09 18:58 | NUR ---
PATIENT HAS BEEN A/O THIS SHIFT. PATIENT MEDICATED FOR PAIN THROUGHOUT THE SHIFT FOR RIGHT HIP PAIN. PATIENT UP TO CHAIR THIS SHIFT. TTWB TO RIGHT LEG. UP WITH MOD-MAX ASSIST. IV SALINE LOCKED. MEI DISCONTINUED THIS SHIFT, HAS VOIDED SINCE REMOVAL. GIVEN SENNA, COLACE, MOM, AND PRUNE JUICE TO AID IN HAVING A BM, PASSING LARGE AMOUNTS OF AIR. DRESSING INTACT TO RIGHT HIP, CHANGED THIS AM BY ORTHO RESIDENT. SEEN BY PT/OT THIS SHIFT. PATIENT WITH BETTER APPETITE AT DINNER, ENSURE SUPPLEMENTS GIVEN THIS SHIFT. FAMILY AT BEDSIDE THIS SHIFT. HOURLY ROUNDING COMPLETED. CALL LIGHT WITHIN REACH. WILL CONTINUE WITH PLAN OF CARE.
[2018-12-09 20:40] VITALS: BP 132/66
[2018-12-10 04:31] LABS: ABSOLUTE BASOPHILS 0.1 thou/uL (0.0-0.2); ABSOLUTE EOSINOPHILS 0.4 thou/uL (0.0-0.7); ABSOLUTE LYMPHOCYTES 1.6 thou/uL (0.8-5.3); ABSOLUTE MONOCYTES 0.8 thou/uL (0.0-1.2); ABSOLUTE NEUTROPHILS 7.3 thou/uL (1.6-8.1); BASOPHILS 1.2 %; EOSINOPHILS 3.5 %; HEMATOCRIT 28.8 % (37.0-47.0); HEMOGLOBIN 9.6 gm/dL (12.0-15.0); LYMPHOCYTES 15.9 %; MCHC 33.3 g/dL (28.0-37.0); MCV 84.2 fL (80.0-100.0); MONOCYTES 7.6 %; MPV 7.2 fl. (7.2-11.1); NUCLEATED RBCS 0 /100WBC; POLYS 71.8 %; RBC 3.42 mil/uL (4.20-5.00); RDW-CV 18.7 % (10.5-14.5); WBC 10.2 thou/uL (4.0-11.0)
[2018-12-10 04:40] LABS: PLATELET COUNT* 486 thou/uL (150-400)
[2018-12-10 04:43] LABS: CALCIUM 8.3 mg/dL (8.5-10.1); CREATININE 0.7 mg/dL (0.6-1.3); POTASSIUM 4.4 mmol/L (3.5-5.1)
--- NOTE | 2018-12-10 05:33 | NUR ---
PT SLEPT MOST OF SHIFT. ASSESSMENT DOCUMENTED. MEDS GIVEN PER E-MAR. IV PATENT. PT UP TO BSC THIS SHIFT. PAIN MEDS GIVEN PER E-MAR WITH RELIEF. ABDUCTOR WEDGE IN PLACE WHILE IN BED. WILL CONTINUE WITH PLAN OF CARE.
[2018-12-10 08:40] VITALS: BP 132/57
[2018-12-10] MEDS ORDERED: SENNA PLUS TAB1 EACH PO (11:54)
[2018-12-10] MEDS ORDERED: OXYCODONE HCL 55 MG PO (11:55)
[2018-12-10] MEDS ORDERED: UNICOMPLEX M TA1 TA1 PO (11:59)
[2018-12-10 12:14] VITALS: BP 132/57
[2018-12-10 12:16] VITALS: BP 132/57
--- NOTE | 2018-12-10 13:01 | NUR ---
JESUS MANUEL recieved message that [facility] received insurance authorization for pt to dc to SNF and transportation scheduled for 2:00 pm. JESUS MANUEL called pt dtr and informed of dc information; all in agreement with plan. Pt nurse aware. [facility] ph [phone] fax [phone]
[2018-12-10 13:16] VITALS: BP 132/57
--- NOTE | 2018-12-10 14:27 | NUR ---
PATIENT IS ALERT AND ORIENTED TODAY VERY PLEASANT. VITAL SIGNS STABLE ON ROOM AIR. SOME PAIN THAT IS CONTROLLED WITH ORAL PAIN MEDICATIONS. PATIENT IS BEING DISCHARGED TO [facility] TODAY. DISCHARGE PACKET AND PRESCRIPTION GIVEN TO RADIOLOGICAL TECHNOLOGIST. REPORT CALLED TO FACILITY. PATIENT LEFT VIA WHEELCHAIR TO FACILITY. FAMILY MEMBERS HAVE PATIENTS BELONGINGNS.
[2018-12-10 14:32] VITALS: BP 132/57
== END 2018-12-10 14:30 | DRG 466 ==
LOC: M.ERS 21:56 → M.ORTHSURG 23:40 → M.TBA-ER 23:40 → M.ERS 23:40 → M.2W 23:40 → M.ORTHSURG 12-01 01:10 → M.TBA-ER 12-01 01:10 → M.ICU 12-02 15:37 → M.2W 12-03 06:50 → M.3W 12-06 21:06
PROVIDERS: Emergency Medicine; Family Medicine; Internal Medicine; ADMIT Internal Medicine
PROC: 0QS604Z Reposition Right Upper Femur with Internal Fixation Device, Open Approach (ICD-10-PCS; principal; 2018-12-02)
PROC: 0SP909Z Removal of Liner from Right Hip Joint, Open Approach (ICD-10-PCS; principal; 2018-12-02)
PROC: 0SU909Z Supplement Right Hip Joint with Liner, Open Approach (ICD-10-PCS; principal; 2018-12-02)
PROC: 30233N1 Transfusion of Nonautologous Red Blood Cells into Peripheral Vein, Percutaneous Approach (ICD-10-PCS; 2018-12-02)
DX: M97.01XA Periprosthetic fracture around internal prosthetic right hip joint, initial encounter (principal); N17.0 Acute kidney failure with tubular necrosis; D62 Acute posthemorrhagic anemia; G93.40 Encephalopathy, unspecified; I10 Essential (primary) hypertension; M25.472 Effusion, left ankle; M06.9 Rheumatoid arthritis, unspecified; Z87.891 Personal history of nicotine dependence; Z79.899 Other long term (current) drug therapy; W01.0XXA Fall on same level from slipping, tripping and stumbling without subsequent striking against object, initial encounter; Y93.89 Activity, other specified; Y92.89 Other specified places as the place of occurrence of the external cause; Y99.8 Other external cause status

== ENCOUNTER → 2019-02-15 | Outpatient (CLI) | payer OTHER ==
[~2019-02-15] MED LIST changes: +OXYCODONE HCL 55 MG PO; +SENNA PLUS TAB1 EACH PO; +UNICOMPLEX M TA1 TA1 PO; +ZOLOFT25 MG PO
== END ==
LOC: M.ULTRA 10:34
DX: M79.89 Other specified soft tissue disorders (principal); M79.604 Pain in right leg; R60.0 Localized edema

== ENCOUNTER → 2019-06-17 | Outpatient (CLI) | payer OTHER | LOC: M.RAD 15:42 | DX: Z13.820 Encounter for screening for osteoporosis (principal); Z78.0 Asymptomatic menopausal state; Z96.641 Presence of right artificial hip joint ==

== ENCOUNTER 2019-11-25 07:12 | Inpatient (IN) | payer OTHER, SELFPAY ==
[~2019-11-25] VITALS: Ht 162.6 cm; Wt 49.4 kg
--- NOTE | ~2019-11-25 | CON ---
[address] [address] CONSULTATION Name: DANIEL ZHU Room: [address] IN [facility].#: [id number] Admission: 11/25/19 Attend Phys: Dc Galloway, Discharge: Date of : 34 Report #: [id number] THIS REPORT FOR: //name// cc: Malaika Cueva. Malaika Castillo. ~ THIS REPORT FOR: //name// CC: Leila. Anay Galloway DATE OF SERVICE: 11/26/2019 ADMISSION DIAGNOSIS: Left lower extremity cellulitis. HISTORY OF PRESENT ILLNESS: An 89-year-old female admitted for worsening left lower extremity inflammation and pain. She has a remote history of right femoral fracture and subsequent pelvic fracture, and is on bed rest. She is alert and oriented and a good historian. She relates low-grade tenderness to the left lower extremity. She denies fevers, chills or malaise, and she has good appetite. She is on parenteral ceftriaxone per Infectious Disease. Venous Doppler negative for DVT, arterial Doppler shows diffuse atherosclerosis to the infrapopliteal region. Blood cultures pending x 2. She denies trauma to the left lower extremity. Left ankle x-rays negative for fracture or other osseous abnormalities other than hallux valgus deformity. LABORATORY DATA: WBC 4.7, RBC 3.50, hemoglobin 11.1, hematocrit 32.5 and platelets 278. BUN 20, creatinine 0.8 and glucose 89. PHYSICAL EXAMINATION: Left lower extremity has +3 nonpitting edema with moderate cellulitis. Several dry scabs to the left anterior mccarty with no drainage noted. She has faintly palpable dorsalis pedis and posterior tibial pulses bilaterally. Negative Homans' or Davis sign in either extremity. No popliteal adenopathy or tenderness. Large left hallux valgus deformity with adjacent hammertoe deformities. Onychomycosis x 10 without paronychia. She can flex and extend the left ankle without difficulty. IMPRESSION: Left lower extremity cellulitis, status post right hip and pelvic fracture on bed rest. PLAN: I recommend daily skin moisturization to the leg and light compression with Tubigrip [place]. By: [id number] Arita DPM /huang
[2019-11-25 07:20] VITALS: BP 168/94
[2019-11-25] MEDS ORDERED: PROZAC10 M1 PO (07:27)
[2019-11-25 08:05] LABS: ABSOLUTE EOSINOPHILS 0.2 thou/uL (0.0-0.7); ABSOLUTE LYMPHOCYTES 1.3 thou/uL (0.8-5.3); ABSOLUTE MONOCYTES 0.2 thou/uL (0.0-1.2); BASOPHILS 0.9 %; EOSINOPHILS 3.7 %; HEMATOCRIT 32.5 % (37.0-47.0); HEMOGLOBIN 11.1 gm/dL (12.0-15.0); LYMPHOCYTES 27.7 %; MCH 31.8 pg (26.0-34.0); MCHC 34.3 g/dL (28.0-37.0); MCV 92.8 fL (80.0-100.0); MONOCYTES 3.4 %; MPV 6.7 fl. (7.2-11.1); NUCLEATED RBCS 0 /100WBC; PLATELET COUNT* 278 thou/uL (150-400); POLYS 64.3 %; RDW-CV 15.5 % (10.5-14.5); WBC 4.7 thou/uL (4.0-11.0)
[2019-11-25 08:10] LABS: CALCIUM 8.7 mg/dL (8.5-10.1); CREATININE 0.8 mg/dL (0.6-1.3); POTASSIUM 4.2 mmol/L (3.5-5.1)
[2019-11-25 08:12] LABS: APTT 31.4 Seconds (25.0-31.3); PROTIME 10.5 Seconds (9.20-11.50)
[2019-11-25 08:15] LABS: ALBUMIN 2.8 g/dL (3.4-5.0); TOTAL BILIRUBIN 0.7 mg/dL (<0.1-1.0); TOTAL PROTEIN 6.4 g/dL (6.4-8.2)
[2019-11-25 11:03] VITALS: BP 160/64
[2019-11-25 11:45] VITALS: BP 175/70
--- NOTE | 2019-11-25 16:39 | EKG ---
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: [place] : 1930 Requested By: Maulik Jaramillo Order Number: [id number] MD: Gilbert Chung Measurements Intervals [place] Rate: 57 P: 0 [place]: 259 QRS: -66 QRSD: 173 T: 118 QT: 515 QTc: 502 Interpretive Statements Sinus rhythm Prolonged [place] interval Left bundle branch block Baseline wander in lead(s) V1 Compared to ECG 11/30/2018 23:22:45 No significant changes Electronically Signed On 11-25-2019 16:38:02 CDT by Gilbert Chung [email or web address] <ELECTRONICALLY SIGNED> By: Gilbert Chung MD, [facility] 11/25/19 1638 3 3 Gilbert Chung MD, [facility] /EPI
--- NOTE | 2019-11-25 18:21 | NUR ---
PT A&Ox4. VITALS STABLE. UP WITH STB ASSIST USING WALKER. TOLERATING DIET. FALL PRECAUTIONS IN PLACE. CALL LIGHT WITHIN REACH. WILL CONTINUE TO MONITOR.
[2019-11-25 21:20] VITALS: BP 154/60
--- NOTE | 2019-11-26 06:22 | NUR ---
PT A&O X 4. MEDS GIVEN ORDERED. NO C/O PAIN. UP STANBY WITH WK TO THE BATHROOM. PT SLEEPING THROUGH THE NIGHT. HOURLY ROUNDINGS COMPLETED. WILL CONTINUE TO MONITOR.
--- NOTE | 2019-11-26 07:41 | CON ---
[address] [address] CONSULTATION Name: DANIEL ZHU Room: [address] IN .R.#: [id number] Admission: 11/25/19 Attend Phys: Dc Galloway, Discharge: Date of : 34 Report #: [id number] THIS REPORT FOR: //name// cc: Malaika Cueva. Malaika Castillo. DO ~ THIS REPORT FOR: //name// CC: Leila. Anay Galloway DATE OF SERVICE: 11/25/2019 INFECTIOUS DISEASE CONSULTATION ATTENDING PHYSICIAN: Dc Galloway MD REASON FOR EVALUATION: Left lower extremity inflammatory eruption, likely multifactorial with a component of skin and soft tissue infection/cellulitis. HISTORY OF PRESENT ILLNESS: Chart reviewed, the patient examined. This is an 89-year-old woman with known venous stasis insufficiency and dermatitis also rheumatoid arthritis, who roughly a year ago, had sustained an injury with right hip fracture with a prolonged course of recovery. More recently she has developed a pelvic fracture due to a fall, this was noted to have increasing swelling involving the left lower extremity with associated redness. She denies significant amount of pain. She denies systemic illness, no fevers or chills. She attributed it to bearing full weight on that limb. She denies any significant pulmonary or gastrointestinal related complaints. She is generally lucid. She was empirically started on ceftriaxone. ALLERGIES: None known. MEDICATIONS: Include methotrexate, multivitamin, fluoxetine, ceftriaxone, enoxaparin, naproxen, lisinopril. PAST MEDICAL HISTORY: As described above, rheumatoid arthritis, venous stasis insufficiency with dermatitis, history of hypertension and ankle sprain. SOCIAL HISTORY: Nonsmoker, no ethanol, no illicit drug use. FAMILY HISTORY: Noncontributory. REVIEW OF SYSTEMS: Otherwise, unremarkable 10-point review of systems with exception of the above. PHYSICAL EXAMINATION: [place] [address] CONSULTATION Name: DANIEL ZHU Room: [address]#: [id number] Admission: 11/25/19 Attend Phys: Dc Galloway, Discharge: Date of : 32 Report #: [id number] GENERAL: She is alert, cooperative, and appropriate. She is pleasant, appears to be oriented, mildly chronically ill appearing, slightly undernourished. VITAL SIGNS: Temperature 97.7, pulse 89, respirations 18, blood pressure 162/70. SKIN: Warm, dry, no rashes. HEENT: Normocephalic. Extraocular muscles intact. NECK: Supple. LUNGS: Somewhat diminished breath sounds, otherwise clear. HEART: Regular, occasional ectopy, soft systolic murmur. ABDOMEN: Soft, nontender, nondistended. EXTREMITIES: Left lower extremity has moderate degree of inflammatory surface signs specifically erythema and swelling. There is no ulcerative lesions, no bullous lesions. GENITOURINARY AND RECTAL: Deferred. LABORATORY DATA: Arterial Doppler showed mild diffuse calcified atherosclerotic disease of both lower extremities, more focal eccentric calcification stenosis within the popliteal artery, perhaps 50% stenosis. Plain film of the foot is intact without acute fracture. Venous Doppler, no evidence of deep venous thrombosis. Lactic acid 0.5. Electrolytes: Sodium 139, potassium 4.2, chloride 103, bicarbonate is 30, anion gap of 6, BUN and creatinine 20 and 0.8. LFTs unremarkable. Albumin of 2.8, total protein of 6.4. Estimated GFR of 68. CBC: White count of 4.7, H and H 11.1 and 32.5, platelets of 278. ASSESSMENT: Left lower extremity inflammatory eruption, suspect component of skin and soft tissue infection with cellulitis, although the absence of pain although not obligatory certainly would help support that. We will continue empiric antimicrobial therapy. Ceftriaxone should give this reasonable Staph/strep coverage setting. Consider some compression in the next 24-48 hours to see how she does. We will monitor expectantly. <ELECTRONICALLY SIGNED> By: Patrice Pelaez MD 11/26/19 0741 [id number] Pelaez MD /nt
[2019-11-26 08:06] VITALS: BP 149/72
--- NOTE | 2019-11-26 15:49 | NUR ---
PT A&Ox4. VITALS STABLE. IV PATENT. SWITCHED TO ORAL ABX. 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 UP STB WITH WALKER. DENIED PAIN. DENIED N/V. TOLERATING DIET. FALL PRECAUTIONS IN PLACE. CALL LIGHT WITHIN REACH. WILL CONTINUE TO MONTITOR.
[2019-11-26 16:00] VITALS: BP 153/73
--- NOTE | 2019-11-26 16:29 | NUR ---
WOUND NURSE: PATIENT PROVIDED SIZE D AND E TUBIGRIPS FOR LLE EDEMA AT THE REQUEST OF DR. Jeri VILLALOBOS, MOSES. APPLIED SIZE D SINGLE LAYER AT THIS TIME.
--- NOTE | 2019-11-26 16:54 | NUR ---
CM COMPLETED ASSESSMENT. HAD A DISCUSSION R/T TO D/C PLANNING. PT LIVE SAT HOME, STATES "MY DAUGHTER LIVES W/ME." PT IS ACTIVE: DOES CHORES AND "GETS OUT W/DAUGHTER," FOR LUNCH, ETC. PT HAS WALKER, W/C, SEAT RISER, AND SHOWER BENCH. PT DENIES HX W/SNF. HAS USED [facility] IN THE PAST. PT HAS 2 SUPPORTIVE DTRS WHO ARE INVOLVED IN PATIENT CARE. CM WILL FOLLOW.
[2019-11-26 20:00] VITALS: BP 159/60
[2019-11-27 04:32] LABS: HEMATOCRIT 31.7 % (37.0-47.0); HEMOGLOBIN 10.9 gm/dL (12.0-15.0); MCH 31.7 pg (26.0-34.0); MCHC 34.3 g/dL (28.0-37.0); MCV 92.5 fL (80.0-100.0); MPV 7.7 fl. (7.2-11.1); RBC 3.42 mil/uL (4.20-5.00); RDW-CV 15.2 % (10.5-14.5); WBC 5.3 thou/uL (4.0-11.0)
[2019-11-27 04:50] LABS: ALBUMIN 2.8 g/dL (3.4-5.0); CALCIUM 8.7 mg/dL (8.5-10.1); CREATININE 0.7 mg/dL (0.6-1.3); MAGNESIUM 2.1 mg/dL (1.8-2.4); POTASSIUM 4.4 mmol/L (3.5-5.1); TOTAL BILIRUBIN 0.6 mg/dL (<0.1-1.0); TOTAL PROTEIN 6.3 g/dL (6.4-8.2)
--- NOTE | 2019-11-27 06:01 | NUR ---
PATIENT VERY PLEASANT RESTED WELL, UP SEVERAL TIMES ASSIST X1 WITH WALKER TO RESTROOM. SHE DID NOT REPORT ANY PAIN. EDEMA IMPROVING COMPRESSION SOCK ON RIGHT TUBA COIN COUNTER AND WRAPPER ON LEFT. NO FEVER VSS. PLAN IS TO D/C TODAY POSSIBLY. WILL CONTINUE TO MONITOR.
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
[2019-11-27 09:40] VITALS: BP 140/70
[2019-11-27] MEDS ORDERED: MINOCYCLINE HC100 M2 PO (15:26)
[2019-11-27 15:28] VITALS: BP 140/70
[2019-11-27 16:00] VITALS: BP 148/68
== END 2019-11-27 16:45 | disposition home health service (06) | DRG 602 ==
LOC: M.ERS 07:12 → M.ORTHSURG 09:26 → M.TBA-ER 09:26 → M.ORTHSURG 11:10
PROVIDERS: Family Medicine; ADMIT Family Medicine
DX: L03.116 Cellulitis of left lower limb (principal); E43 Unspecified severe protein-calorie malnutrition; M06.9 Rheumatoid arthritis, unspecified; I10 Essential (primary) hypertension; I83.10 Varicose veins of unspecified lower extremity with inflammation; M16.10 Unilateral primary osteoarthritis, unspecified hip; B35.1 Tinea unguium; I73.9 Peripheral vascular disease, unspecified; Z68.28 Body mass index [BMI] 28.0-28.9, adult; Z79.891 Long term (current) use of opiate analgesic; Z79.899 Other long term (current) drug therapy; Z87.891 Personal history of nicotine dependence

== ENCOUNTER 2020-03-18 01:27 | Emergency (ER) | payer OTHER ==
[~2020-03-18] VITALS: Ht 157.5 cm; Wt 45.4 kg
[~2020-03-18 01:27] MED LIST changes: +MINOCYCLINE HC100 M2 PO; +PROZAC10 M1 PO
[2020-03-18 02:31] VITALS: BP 145/77
== END 2020-03-18 02:31 | disposition home or self-care (01) ==
LOC: M.ERS 01:27
DX: M67.431 Ganglion, right wrist (principal); I10 Essential (primary) hypertension; M06.9 Rheumatoid arthritis, unspecified; Z96.641 Presence of right artificial hip joint; Z87.891 Personal history of nicotine dependence

== ENCOUNTER 2020-06-02 18:11 | Inpatient (IN) | payer OTHER ==
[~2020-06-02] VITALS: Ht 167.6 cm; Wt 45.5 kg
--- NOTE | ~2020-06-02 | OP ---
[facility] [place] [place] [address] OPERATIVE REPORT Name: DANIEL ZHU Room: [address] IN .R.#: [id number] Admission: 06/02/20 Attend Phys: Delma Montalvo MD Discharge: Date of : 32 Report #: [id number] THIS REPORT FOR: //name// cc: Malaika Cueva. Malaika Castillo. ~ CC: Delma Cueva DATE OF SERVICE: 06/06/2020 PREOPERATIVE DIAGNOSIS: Left comminuted distal femur fracture. POSTOPERATIVE DIAGNOSIS: Left comminuted distal femur fracture. PROCEDURE: Open reduction and internal fixation of left comminuted distal femur fracture. SURGEON: Ulisses Tang DO ASSISTANTS: 1. Luke Henriquez DO 2. Parish Castillo DO 3. Jimmie Orellana DO ANESTHESIA: General. ANTIBIOTICS: Ancef. INTRAVENOUS FLUIDS: 600 mL lactated Ringer's. ESTIMATED BLOOD LOSS: 150 mL. COMPLICATIONS: None. SPECIMENS: None. DRAINS: None. CONDITION OF PATIENT: Stable to PACU. IMPLANTS: Man retrograde natural nail 10 x 240 mm with 3 interlocking screws through the nail distally and 2 proximally, nail plate combination used, plate was Man NCB periprosthetic plate with locking end caps placed for the screws distally. The most distal proximal screw has a locking end cap. The remaining screws are cortical. [facility] [address] OPERATIVE REPORT Name: ZHUDANIEL Room: [address] IN [place].#: [id number] Admission: 06/02/20 Attend Phys: Delma Montalvo MD Discharge: Date of : 32 Report #: [id number] INDICATIONS FOR PROCEDURE: The patient presented to [facility] after a fall, diagnosed with a distal femur fracture. My partner Dr. Carver was molten iron pourer. The patient and family were adamant that I performed the surgery; however, I was unable to be available just until today. They were educated on the potential pitfalls of delaying surgery, but they stated they accepted those risks and wished to wait until I could perform the surgery. I went over with them the plan of surgery and risks and complications in detail. They are understanding. Their main question just seem to be about her falling and the risks of other fractures, I did state with them that the risks of the fracture is unfortunately still there especially with continued falls and they could be celio-implant. They acknowledged, accepted, thanked me for my time and detailed explanations and willingness to do her surgery as requested. DESCRIPTION OF PROCEDURE: I marked the left lower extremity in the presence of operative team members. Everyone agreed correct. She was taken to the operative suite, placed on the operative table in supine position, well-padded and secured. General anesthetic administered. Left lower extremity was sterilely prepped and draped in standard fashion. Timeout was performed indicating correct patient, procedure, site, antibiotics and that implants were present and sterile. All team members agreed. We began with a retrograde nail. Standard incision for this just below the patella with scalpel through skin, full thickness flaps, secondary scalpel through the patellar tendon and then protected the tendon throughout the entirety of the case. A guidewire introduced and inserted and advanced in the appropriate position on multiplanar imaging. Reamed over that guidewire, placed a ball-tipped guidewire, had an excellent reduction of the fracture, comminution anteriorly, it did make reduction very difficult, but we were able to get quite nice. A shorter retrograde nail would be used ____ strut to help for weightbearing and then plate around; therefore, 240 mm was chosen. She was very open canal; therefore, reaming was not necessary. The 10 x 240 mm retrograde nail was thrown and easily slid over the ball-tipped guidewire, held the reduction nicely. While holding the reduction, we drilled and placed three screws through the nail distally and 2 proximally, that held the reduction well enough that no longer needed to be held. We then made an incision for a plate laterally, slid the plate up. It should be noted that I did try to slide the plate up to get coverage into the femoral neck, but however, with the plate sizing and her anatomy, it was not able to be done. The plate ____ too short run the risk of perforating her femoral neck with screws. We therefore chose a plate that would stop well short of the lesser, so as to avoid any potential stress riser and also that if she was to unfortunately develop a hip fracture, it would still most likely leave room for fixation. Family had been warned about this prior to surgery. We slid that plate up, drilled and placed cortical screws proximally and sucked to bone and then drilled and placed screws distally with locking caps. The most distal screw in the shaft was not good purchase; therefore, locking end cap was placed for this. We removed any provisional fixation. Full range of motion about the knee with no loose body. The final x-ray showed [facility] [address] [place] [place] [address] OPERATIVE REPORT Name: DANIEL ZHU Room: [address] IN [facility]#: [id number] Admission: 06/02/20 Attend Phys: Delma Montalvo MD Discharge: Date of : 32 Report #: [id number] excellent placement of hardware and reduction of fracture. Saved those images, irrigated all incision sites including the joint with normal saline and then closed deep layers including the tendon with 0 Vicryl, subcutaneous with 2-0 Monocryl and skin with 3-0 nylon. Debriefing performed confirming procedure, blood loss and that all counts were correct and final. All team members agreed. Sterile silver dressing was applied and then she was extubated and taken to PACU stable. POSTOPERATIVE COURSE AND EVALUATION: I spoke with her daughter, addressed any of her questions to stated satisfaction. She was very thankful for my time and efforts. The patient was resting in PACU with stable vital signs, pain controlled, neurovascularly intact. Compartments soft and compressible. No signs of DVT. PACU film shows stable internal fixation and fracture reduction. We will get 50% weightbearing and this is a nail and plate combo and that was the main reason for choosing a type of construct was to allow for some early weightbearing with her age. DVT prophylaxis will be pharmacological and mechanical. PT, OT, case management to help with discharge planning and call anytime with questions or concerns. COVID protocol was followed at all times. By: [id number] Heidi Tang DO /nt
[2020-06-02 18:19] VITALS: BP 187/78
[2020-06-02 20:18] LABS: ABSOLUTE BASOPHILS 0.1 thou/uL (0.0-0.2); ABSOLUTE EOSINOPHILS 0.1 thou/uL (0.0-0.7); ABSOLUTE LYMPHOCYTES 1.4 thou/uL (0.8-5.3); ABSOLUTE MONOCYTES 0.3 thou/uL (0.0-1.2); ABSOLUTE NEUTROPHILS 4.4 thou/uL (1.6-8.1); BASOPHILS 1.2 %; HEMATOCRIT 35.5 % (37.0-47.0); HEMOGLOBIN 12.3 gm/dL (12.0-15.0); LYMPHOCYTES 22.2 %; MCH 31.9 pg (26.0-34.0); MCHC 34.6 g/dL (28.0-37.0); MCV 92.4 fL (80.0-100.0); MONOCYTES 5.3 %; MPV 7.5 fl. (7.2-11.1); NUCLEATED RBCS 0 /100WBC; PLATELET COUNT* 247 thou/uL (150-400); POLYS 70.3 %; RBC 3.85 mil/uL (4.20-5.00); RDW-CV 15.3 % (10.5-14.5); WBC 6.2 thou/uL (4.0-11.0)
[2020-06-02 20:30] LABS: APTT 28.7 Seconds (25.0-31.3); INR 1.1; PROTIME 11.1 Seconds (9.20-11.50)
[2020-06-02 20:33] LABS: CALCIUM 9.1 mg/dL (8.5-10.1); CREATININE 0.7 mg/dL (0.6-1.3); POTASSIUM 4.3 mmol/L (3.5-5.1)
[2020-06-02 20:37] LABS: ALBUMIN 3.5 g/dL (3.4-5.0); TOTAL BILIRUBIN 0.8 mg/dL (<0.1-1.0); TOTAL PROTEIN 7.1 g/dL (6.4-8.2)
[2020-06-02 21:04] VITALS: BP 165/70
[2020-06-02 21:23] VITALS: BP 159/76
[2020-06-03 08:30] VITALS: BP 158/71
--- NOTE | 2020-06-03 10:01 | EKG ---
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 : 1930 Requested By: Leydi Galeas Order Number: [id number] MD: Gilbert Chung Measurements Intervals [place] Rate: 60 P: 14 [place]: 250 QRS: -42 QRSD: 170 T: 135 QT: 484 QTc: 484 Interpretive Statements Sinus rhythm Prolonged [place] interval Left bundle branch block Baseline wander in lead(s) I,III,aVL Compared to ECG 11/25/2019 09:24:58 No significant changes Electronically Signed On 06-03-2020 10:01:10 CDT by Gilbert Chung [email or web address] <ELECTRONICALLY SIGNED> By: Gilbert Chugn MD, FACC 06/03/20 1001 07 07 Gilbert Chung MD, FACC /EPI
[2020-06-03 17:53] VITALS: BP 149/68
[2020-06-03 20:04] VITALS: BP 154/75
[2020-06-04 04:13] LABS: HEMATOCRIT 28.9 % (37.0-47.0); MCHC 34.5 g/dL (28.0-37.0); MCV 92.9 fL (80.0-100.0); MPV 8.4 fl. (7.2-11.1); RBC 3.11 mil/uL (4.20-5.00); RDW-CV 15.4 % (10.5-14.5); WBC 7.3 thou/uL (4.0-11.0)
[2020-06-04 04:59] LABS: CALCIUM 8.5 mg/dL (8.5-10.1); CREATININE 0.7 mg/dL (0.6-1.3); POTASSIUM 3.9 mmol/L (3.5-5.1)
[2020-06-04 08:45] VITALS: BP 152/78
[2020-06-04 16:00] VITALS: BP 136/64
[2020-06-04 20:35] VITALS: BP 141/61
[2020-06-05 09:19] VITALS: BP 145/62
[2020-06-05 16:24] VITALS: BP 143/64
[2020-06-05 19:42] VITALS: BP 134/65
[2020-06-06 04:02] LABS: ABSOLUTE BASOPHILS 0.1 thou/uL (0.0-0.2); ABSOLUTE EOSINOPHILS 0.1 thou/uL (0.0-0.7); ABSOLUTE LYMPHOCYTES 1.3 thou/uL (0.8-5.3); ABSOLUTE MONOCYTES 0.6 thou/uL (0.0-1.2); ABSOLUTE NEUTROPHILS 5.6 thou/uL (1.6-8.1); BASOPHILS 0.9 %; EOSINOPHILS 1.4 %; HEMATOCRIT 26.6 % (37.0-47.0); HEMOGLOBIN 9.2 gm/dL (12.0-15.0); LYMPHOCYTES 16.5 %; MCH 32.2 pg (26.0-34.0); MCHC 34.6 g/dL (28.0-37.0); MCV 92.9 fL (80.0-100.0); MPV 8.8 fl. (7.2-11.1); NUCLEATED RBCS 0 /100WBC; PLATELET COUNT* 172 thou/uL (150-400); POLYS 73.2 %; RBC 2.86 mil/uL (4.20-5.00); RDW-CV 15.5 % (10.5-14.5); WBC 7.6 thou/uL (4.0-11.0)
[2020-06-06 04:03] LABS: PROTIME 10.3 Seconds (9.20-11.50)
[2020-06-06 04:30] LABS: ALBUMIN 2.4 g/dL (3.4-5.0); CALCIUM 8.2 mg/dL (8.5-10.1); CREATININE 0.7 mg/dL (0.6-1.3); POTASSIUM 4.6 mmol/L (3.5-5.1); TOTAL BILIRUBIN 0.8 mg/dL (<0.1-1.0); TOTAL PROTEIN 5.6 g/dL (6.4-8.2)
[2020-06-06 08:00] VITALS: BP 127/66
[2020-06-06 19:40] VITALS: BP 151/68
[2020-06-07 00:32] VITALS: BP 124/61
[2020-06-07 04:14] LABS: HEMATOCRIT 24.5 % (37.0-47.0); HEMOGLOBIN 8.5 gm/dL (12.0-15.0); MCH 32.3 pg (26.0-34.0); MCHC 34.8 g/dL (28.0-37.0); MCV 92.7 fL (80.0-100.0); MPV 7.8 fl. (7.2-11.1); NUCLEATED RBCS 0 /100WBC; RBC 2.64 mil/uL (4.20-5.00); RDW-CV 15.7 % (10.5-14.5); WBC 9.5 thou/uL (4.0-11.0)
[2020-06-07 04:32] LABS: PLATELET COUNT* 252 thou/uL (150-400)
[2020-06-07 04:37] LABS: ALBUMIN 2.4 g/dL (3.4-5.0); CALCIUM 8.3 mg/dL (8.5-10.1); POTASSIUM 4.8 mmol/L (3.5-5.1); TOTAL BILIRUBIN 1.1 mg/dL (<0.1-1.0)
[2020-06-07 07:12] LABS: ABSOLUTE BASOPHILS 0.1 thou/uL (0.0-0.2); ABSOLUTE LYMPHOCYTES 1.4 thou/uL (0.8-5.3); ABSOLUTE MONOCYTES 0.4 thou/uL (0.0-1.2); ABSOLUTE NEUTROPHILS 7.6 thou/uL (1.6-8.1); PLATELET ESTIMATE ADEQUATE
[2020-06-07 07:13] LABS: HYPOCHROMASIA 1+; MICROCYTES 1+
[2020-06-07 08:05] VITALS: BP 150/63
[2020-06-07 12:00] VITALS: BP 117/56
[2020-06-07 16:14] VITALS: BP 117/66
[2020-06-07 20:00] VITALS: BP 127/69
[2020-06-08 00:17] VITALS: BP 135/72
[2020-06-08 04:04] LABS: HEMATOCRIT 21.2 % (37.0-47.0); HEMOGLOBIN 7.5 gm/dL (12.0-15.0); MCH 32.5 pg (26.0-34.0); MCHC 35.4 g/dL (28.0-37.0); MPV 7.6 fl. (7.2-11.1); RBC 2.31 mil/uL (4.20-5.00); RDW-CV 15.5 % (10.5-14.5); WBC 5.8 thou/uL (4.0-11.0)
[2020-06-08 04:05] VITALS: BP 130/75
[2020-06-08 04:30] LABS: ALBUMIN 2.3 g/dL (3.4-5.0); CALCIUM 8.3 mg/dL (8.5-10.1); CREATININE 0.9 mg/dL (0.6-1.3); MAGNESIUM 2.1 mg/dL (1.8-2.4); POTASSIUM 4.1 mmol/L (3.5-5.1); TOTAL BILIRUBIN 0.8 mg/dL (<0.1-1.0); TOTAL PROTEIN 5.7 g/dL (6.4-8.2)
[2020-06-08 08:30] VITALS: BP 103/54
[2020-06-08 12:30] VITALS: BP 139/66
[2020-06-08 16:08] VITALS: BP 119/50
[2020-06-08 21:03] VITALS: BP 145/62
[2020-06-09 05:20] LABS: HEMATOCRIT 22.1 % (37.0-47.0); HEMOGLOBIN 7.7 gm/dL (12.0-15.0); MCH 32.2 pg (26.0-34.0); MCHC 34.7 g/dL (28.0-37.0); MCV 92.8 fL (80.0-100.0); MPV 7.8 fl. (7.2-11.1); RBC 2.38 mil/uL (4.20-5.00); RDW-CV 15.6 % (10.5-14.5); WBC 7.4 thou/uL (4.0-11.0)
[2020-06-09 05:28] LABS: CALCIUM 8.7 mg/dL (8.5-10.1); CREATININE 0.7 mg/dL (0.6-1.3); MAGNESIUM 2.1 mg/dL (1.8-2.4); POTASSIUM 4.1 mmol/L (3.5-5.1)
[2020-06-09 08:00] VITALS: BP 149/83
[2020-06-09 16:17] VITALS: BP 144/80
[2020-06-09 19:56] VITALS: BP 142/66
[2020-06-10 07:45] VITALS: BP 131/77
[2020-06-10 13:10] VITALS: BP 111/51
[2020-06-10 13:25] VITALS: BP 103/59
[2020-06-10 16:04] LABS: HEMATOCRIT 23.8 % (37.0-47.0); HEMOGLOBIN 8.1 gm/dL (12.0-15.0); MCH 32.1 pg (26.0-34.0); MCV 94.5 fL (80.0-100.0); MPV 7.5 fl. (7.2-11.1); RBC 2.52 mil/uL (4.20-5.00); RDW-CV 15.9 % (10.5-14.5); WBC 7.4 thou/uL (4.0-11.0)
[2020-06-10 16:12] LABS: CALCIUM 8.7 mg/dL (8.5-10.1); CREATININE 0.7 mg/dL (0.6-1.3); POTASSIUM 4.4 mmol/L (3.5-5.1)
[2020-06-10 17:10] VITALS: BP 135/61
[2020-06-10 19:33] VITALS: BP 149/73
[2020-06-11 06:09] VITALS: BP 160/79
[2020-06-11 07:40] VITALS: BP 137/83
[2020-06-11 15:25] VITALS: BP 131/93
[2020-06-11 19:58] VITALS: BP 136/64
[2020-06-12 05:23] LABS: HEMATOCRIT 24.4 % (37.0-47.0); HEMOGLOBIN 8.4 gm/dL (12.0-15.0); MCH 32.2 pg (26.0-34.0); MCHC 34.5 g/dL (28.0-37.0); MCV 93.3 fL (80.0-100.0); MPV 7.3 fl. (7.2-11.1); RBC 2.61 mil/uL (4.20-5.00); RDW-CV 16.7 % (10.5-14.5); WBC 9.5 thou/uL (4.0-11.0)
[2020-06-12 05:29] LABS: CALCIUM 8.6 mg/dL (8.5-10.1); CREATININE 0.9 mg/dL (0.6-1.3); POTASSIUM 4.1 mmol/L (3.5-5.1)
[2020-06-12 08:40] VITALS: BP 144/67
[2020-06-12] MEDS ORDERED: LEVOTHYROXINE25 MCG PO (08:49)
[2020-06-12] MEDS ORDERED: OXYCODONE HCL 55 MG PO (08:49)
[2020-06-12] MEDS ORDERED: ELIQUIS5 MG PO (08:49)
[2020-06-12] MEDS ORDERED: LIDOPATCH1 EACH TOP (08:49)
[2020-06-12] MEDS ORDERED: TRAMADOL 50 MG50 MG PO (08:49)
[2020-06-12] MEDS ORDERED: FERREX 150 PLU1 EAC1 PO (08:49)
[2020-06-12 12:32] VITALS: BP 114/61
[2020-06-12 16:42] VITALS: BP 130/60
[2020-06-12 20:40] VITALS: BP 153/65
[2020-06-13 15:31] VITALS: BP 134/60
[2020-06-13 19:46] VITALS: BP 126/59
[2020-06-14 08:00] VITALS: BP 155/79
[2020-06-14 15:56] VITALS: BP 126/52
[2020-06-14 19:54] VITALS: BP 146/67
[2020-06-15 07:20] VITALS: BP 143/52
[2020-06-15] MEDS ORDERED: TRAMADOL 50 MG50 MG PO (07:49)
[2020-06-15] MEDS ORDERED: VOLTAREN GEL 1100 G1 TOP (07:49)
[2020-06-15] MEDS ORDERED: OXYCODONE HCL 55 MG PO (07:49)
== END 2020-06-15 11:53 | DRG 481 ==
LOC: M.ERS 18:11 → M.TBA-ER 19:58 → M.ORTHSURG 19:58
PROVIDERS: Nurse Practitioner; Personal Emergency Response Attendant; Physician Assistant; ADMIT Internal Medicine; ATTEND Internal Medicine
PROC: 0QSC04Z Reposition Left Lower Femur with Internal Fixation Device, Open Approach (ICD-10-PCS; principal; 2020-06-06)
DX: S72.352A Displaced comminuted fracture of shaft of left femur, initial encounter for closed fracture (principal); E44.0 Moderate protein-calorie malnutrition; Z68.1 Body mass index [BMI] 19.9 or less, adult; M06.9 Rheumatoid arthritis, unspecified; I10 Essential (primary) hypertension; Z96.641 Presence of right artificial hip joint; S00.83XA Contusion of other part of head, initial encounter; S70.311A Abrasion, right thigh, initial encounter; M67.431 Ganglion, right wrist; I95.9 Hypotension, unspecified; Z20.828 Contact with and (suspected) exposure to other viral communicable diseases; Z87.891 Personal history of nicotine dependence; W18.39XA Other fall on same level, initial encounter; Y93.89 Activity, other specified; Y92.89 Other specified places as the place of occurrence of the external cause; Y99.8 Other external cause status; Z79.899 Other long term (current) drug therapy

== ENCOUNTER 2020-07-10 12:34 | Inpatient (IN) | payer OTHER ==
[~2020-07-10] VITALS: Ht 162.6 cm; Wt 61.2 kg
--- NOTE | ~2020-07-10 | OP ---
[address] [address] OPERATIVE REPORT Name: ZHUDANIEL Room: [address] IN .R.#: [id number] Admission: 07/10/20 Attend Phys: Jose Beatty MD Discharge: Date of : 34 Report #: [id number] THIS REPORT FOR: //name// cc: Malaika Cueva. Leila. ASHOK Castillo ~ CC: Jose Cueva DATE OF SERVICE: 07/18/2020 PREOPERATIVE DIAGNOSIS: Left comminuted intra-articular distal humerus fracture. POSTOPERATIVE DIAGNOSIS: Left comminuted intra-articular distal humerus fracture. PROCEDURE: Open reduction and internal fixation of left comminuted intra-articular distal humerus fracture. SURGEON: Ulisses Tang DO CAFETERIA OPERATOR: Miguelito Frias DO ANESTHESIA: General and block. ANTIBIOTICS: Ancef IV. FLUIDS: 1000 mL lactated Ringer's. ESTIMATED BLOOD LOSS: 25 mL. COMPLICATIONS: None. SPECIMENS: None. DRAINS: None. TOURNIQUET TIME: 70 minutes at 250 mmHg. CONDITION OF PATIENT: Stable to PACU. IMPLANTS: Synthes distal humerus VA locking plates with cortical and locking screws. Distal screws being 2.7 locking. INDICATIONS FOR PROCEDURE: Displaced comminuted intra-articular fracture of the distal humerus and the patient requiring use of a walker and support that [address] [address] OPERATIVE REPORT Name: DANIEL ZHU Room: [address] IN [facility]#: [id number] Admission: 07/10/20 Attend Phys: Jose Beatty MD Discharge: Date of : 34 Report #: [id number] extremity. I went over her plan of surgery and risks and complications as well as treatment options that would involve nonoperative. An ideal candidate for elbow replacement as she does need to avoid any lifting restriction if possible. The patient and daughter were acknowledged, accepted and gave consent to proceed. DESCRIPTION OF PROCEDURE: I marked the left upper extremity in the presence of operative team members. Everyone agreed correct. She was taken back to the operative suite. General anesthetic administered. She was transferred over to the operative table, placed into the right lateral decubitus position. She was well-padded and secured. The left upper extremity was sterilely prepped and draped in standard fashion. Timeout was performed indicating correct patient, procedure, site, antibiotics and implants were present and sterile. All team members agreed. Sterile tourniquet was placed. I marked out an incision posteriorly. A tourniquet went up to 250 mmHg. Scalpel through skin. Full thickness flaps identified, went medially as we went through fascia. Ulnar nerve was identified and protected and dissected down freeing up appropriately not placing any tension radially. We dissected through, found the posterior antebrachial cutaneous nerve, should be noted that there was some twisting and a little bit of abnormal type anatomy as I would not expect to see the radial nerve until it was diving anteriorly while falling down the posterior brachial cutaneous nerve; however, the nerve was wrapped up with some of the fracture fragments distally. We were actually able to trace this back. We did have to mobilize the radial nerve from that the fragments distally due to the fracture displacement. There was anterior nerve appeared intact, did not appear bruised. There was no laceration. Nerve overall in continuity. Followed this up, freed up and protected through the remainder of the case. We now were visualizing the entire aspect of the distal humerus and distal aspect of the shaft. We were able to get a reduction with [id number] clamps and K-wires. We were able to visualize the articular surface, did not want to disrupt the olecranon. C-arm was brought in and confirmed that reduction was appropriate. We placed our plates, direct lateral and direct medial plates, pinned in position, again checked C-arm showed appropriateness. Two cortical screws were placed proximally and other 2 screws were locking. Distally, we placed 2.7 locking screws. Had full visualization of these screws were into place, nothing was in the joint. One of the screws was in the olecranon fossa, but needed for some fixation and was not impinging or causing any intra-articular involvement. All provisional fixation clamps were removed. The elbow was taken through range of motion. We had full flexion, extension, pronation and supination. No block to motion. Final C-arm images showed excellent reduction and placement of hardware. I let down tourniquet, total time as mentioned above. Maintained hemostasis, irrigated thoroughly with normal saline, closed our intervals with 0 Vicryl, subcutaneous with 2-0 Monocryl and skin with 3-0 nylon. Debriefing performed confirming procedure, blood loss and that all counts were correct and final. All team members agreed. Sterile splint was applied consisting of Xeroform gauze, 4 x 4s, soft roll, posterior UCL and Marcos wrap. She was then [address] [address] OPERATIVE REPORT Name: DANIEL ZHU Room: [address] IN [place].#: [id number] Admission: 07/10/20 Attend Phys: Jose Beatty MD Discharge: Date of : 32 Report #: [id number] extubated and transferred off the operative table supine in her bed and taken to PACU stable. POSTOPERATIVE COURSE AND EVALUATION: I spoke with her daughter, addressed questions she had stated satisfaction. I did explain that one of the nerves appeared to be involved around the fracture, which was quite an unusual scenario. She did have a block preoperatively, so we will not know the condition of that nerve due to the immobilization of the fracture fragments until likely tomorrow or even the next day. Family was understanding and appreciative. She was resting in PACU with stable vital signs, pain controlled. Compartments soft and compressible, well vascularized extremity with palpable radial pulse and brisk cap refill. Neuro exam not possible due to block. DVT prophylaxis will continue to be pharmacological and mechanical. PT, OT. Splint clean, dry and intact. Case management to help with discharge planning. Call anytime with questions or concerns. COVID protocol followed at all times. By: 0858 Herlinda3Ulisses Tang DO /nt
[~2020-07-10 12:34] MED LIST changes: +ELIQUIS5 MG PO; +FERREX 150 PLU1 EAC1 PO; +LEVOTHYROXINE25 MCG PO; +LIDOPATCH1 EACH TOP; +TRAMADOL 50 MG50 MG PO; +VOLTAREN GEL 1100 G1 TOP
[2020-07-10 12:39] VITALS: BP 162/68
[2020-07-10 13:47] LABS: HEMATOCRIT 35.7 % (37.0-47.0); HEMOGLOBIN 11.7 gm/dL (12.0-15.0); MCH 31.8 pg (26.0-34.0); MCHC 32.7 g/dL (28.0-37.0); MCV 97.1 fL (80.0-100.0); MPV 6.9 fl. (7.2-11.1); NUCLEATED RBCS 0 /100WBC; PLATELET COUNT* 361 thou/uL (150-400); RBC 3.68 mil/uL (4.20-5.00); RDW-CV 17.1 % (10.5-14.5); WBC 17.5 thou/uL (4.0-11.0)
[2020-07-10 13:52] LABS: CREATININE 0.6 mg/dL (0.6-1.3); POTASSIUM 4.7 mmol/L (3.5-5.1)
[2020-07-10 13:57] LABS: ALBUMIN 2.8 g/dL (3.4-5.0); MAGNESIUM 2.2 mg/dL (1.8-2.4); TOTAL BILIRUBIN 0.7 mg/dL (<0.1-1.0); TOTAL PROTEIN 6.8 g/dL (6.4-8.2)
[2020-07-10 14:39] LABS: ABSOLUTE EOSINOPHILS 0.2 thou/uL (0.0-0.7); ABSOLUTE LYMPHOCYTES 1.2 thou/uL (0.8-5.3); ABSOLUTE MONOCYTES 1.1 thou/uL (0.0-1.2); ABSOLUTE NEUTROPHILS 15.1 thou/uL (1.6-8.1); PLATELET ESTIMATE ADEQUATE
[2020-07-10 15:07] LABS: URINE BILIRUBIN NEGATIVE (Negative); URINE BLOOD NEGATIVE (Negative); URINE CLARITY CLEAR; URINE COLOR YELLOW; URINE GLUCOSE-RANDOM NEGATIVE (Negative); URINE KETONES NEGATIVE (Negative); URINE LEUKOCYTES-REFLEX NEGATIVE (Negative); URINE NITRITE-REFLEX NEGATIVE (Negative); URINE PROTEIN NEGATIVE (Negative)
[2020-07-10 18:35] LABS: APTT 29.4 Seconds (25.0-31.3); INR 1.1; PROTIME 11.2 Seconds (9.20-11.50)
[2020-07-10 20:00] VITALS: BP 133/76
[2020-07-10 20:01] VITALS: BP 118/62
[2020-07-10 20:30] VITALS: BP 133/76
[2020-07-11] VITALS: BP 99/42
--- NOTE | 2020-07-11 03:46 | NUR ---
PT ADMIT TO ROOM 203 AT 2020. PT WITH L HIP FEMORAL HEAD FX AND DISPLACED L ELBOW. PT'S DAUGHTER ELA WITH PT. PT AND ELA ARE UNABLE TO GIVE A MED LIST. ELA SAID THE OTHER DAUGHTER CLARITZA HAS KNOWLEDGE OF PTS MED LIST AND SHE HAS WENT TO BED FOR THE NIGHT AND TO CALL TOMMOROW MORNING. A&0 X 4. TURN Q 2 HRS. WOUND ON COCCYX PICTURED AND PLACED ON CHART. WOUND NURSE CONSULTED. HAMIDA FOR IMMOBILITY. 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 DR MADERA CONSULTED. PAIN CONTROLLED WITH FENTANYL. NPO AT AR. ORTHO CONSULTED. CONSENT FOR ORTH SURGERY PLACED ON CHART. ANEANESTHESIA CONSENT PLACED ON CHART. NS AT 100 MLS/HR. WCTM
[2020-07-11 04:00] VITALS: BP 93/51
[2020-07-11 07:47] VITALS: BP 135/54
[2020-07-11 08:13] LABS: ABSOLUTE BASOPHILS 0.1 thou/uL (0.0-0.2); ABSOLUTE EOSINOPHILS 0.1 thou/uL (0.0-0.7); ABSOLUTE LYMPHOCYTES 1.2 thou/uL (0.8-5.3); ABSOLUTE MONOCYTES 0.7 thou/uL (0.0-1.2); ABSOLUTE NEUTROPHILS 4.9 thou/uL (1.6-8.1); BASOPHILS 0.8 %; EOSINOPHILS 0.9 %; HEMATOCRIT 30.2 % (37.0-47.0); HEMOGLOBIN 9.8 gm/dL (12.0-15.0); LYMPHOCYTES 17.5 %; MCH 31.5 pg (26.0-34.0); MCHC 32.6 g/dL (28.0-37.0); MCV 96.8 fL (80.0-100.0); MONOCYTES 10.6 %; MPV 7.5 fl. (7.2-11.1); NUCLEATED RBCS 0 /100WBC; PLATELET COUNT* 294 thou/uL (150-400); POLYS 70.2 %; RBC 3.12 mil/uL (4.20-5.00); RDW-CV 16.6 % (10.5-14.5); WBC 6.9 thou/uL (4.0-11.0)
[2020-07-11 08:22] LABS: CALCIUM 8.3 mg/dL (8.5-10.1); CREATININE 0.6 mg/dL (0.6-1.3); POTASSIUM 3.9 mmol/L (3.5-5.1)
[2020-07-11 11:20] VITALS: BP 130/61
--- NOTE | 2020-07-11 12:48 | NUR ---
PT OFF UNIT TO OR.
--- NOTE | 2020-07-11 13:45 | NUR ---
Pt is A&O. Pt states that she was recently dc from [facility] to home with dtr, Pt states that she is current with [facility] . Pt primarily uses a walker for mobility, but also has a wc. Pt to have surgery today. Echo completed. [place] need [place], therapies to be ordered post surgery. Following.
--- NOTE | 2020-07-11 14:16 | NUR ---
EREPORT GIVEN TO IRA KNOTT
--- NOTE | 2020-07-11 17:50 | 2DMMODE ---
[place] [address] 2 D/M-MODE ECHOCARDIOGRAM Name: DANIEL ZHU Room: [address] IN .R.#: [id number] Admission: 07/10/20 Attend Phys: Jose Beatty, Discharge: Date of : 32 Date of Service: 07/11/20 1750 Report #: [id number] THIS REPORT FOR: cc: Malaika Cueva. Malaika Castillo. Gilbert De León MD [facility] ~ APPROVED REPORT Study performed: 07/11/2020 10:12:59 EXAM: Comprehensive 2D, Doppler, and color-flow Echocardiogram Patient Location: Bedside BSA: 1.46 HR: 96 bpm BP: 135/54 mmHg Other Information Study Quality: Good Technically limited study due to inability to position patient. Indications Syncope 2D Dimensions IVSd: 13.25 (7-11mm) LVOT Diam: 16.34 (18-24mm) LVDd: 48.05 mm PWd: 15.40 (7-11mm) Ascending Ao: 29.07 (22-36mm) LVDs: 45.07 (25-40mm) Aortic Root: 27.29 mm Volumes Left Atrial Volume (Systole) LA ESV Index: 31.10 mL/m2 Aortic Valve AoV Peak Huang.: 1.65 m/s AO Peak Gr.: 10.94 mmHg LVOT Max P.42 mmHg AO Mean Gr.: 5.50 mmHg LVOT Mean P.25 mmHg LVOT Max V: 1.16 m/s AO V2 VTI: 25.12 cm LVOT Mean V: 0.68 m/s MYLES (VTI): 1.69 cm2 LVOT V1 VTI: 20.24 cm AI Stewart: 1.23 m/s2 [place] [address] 2 D/M-MODE ECHOCARDIOGRAM Name: DANIEL ZHU Room: [address] [place] .R.#: [id number] Admission: 07/10/20 Attend Phys: Jose Beatty, Discharge: Date of : 32 Date of Service: 07/11/20 1750 Report #: [id number] AI PHT: 787.90 ms Mitral Valve MV Mean Gr.: 3.67 mmHg E/A Ratio: 0.57 MV Decel. Time: 244.49 ms MV E Max Huang.: 0.74 m/s MV PHT: 70.90 ms MVA (PHT): 3.10 cm2 TDI E/Lateral E': 8.22 E/Medial E': 12.33 Medial E' Huang.: 0.06 m/s Lateral E' Huang.: 0.09 m/s Pulmonary Valve PV Peak Huang.: 1.27 m/s PV Peak Gr.: 6.44 mmHg Tricuspid Valve RAP Estimate: 5.00 mmHg TR Peak Gr.: 32.72 mmHg RVSP: 37.72 mmHg PA Pressure: 37.72 mmHg Left Ventricle The left ventricle is normal size. Paradoxical septal motion, and distal septal apical hypokinesis. Moderate concentric left ventricular hypertrophy. Left ventricular systolic function is moderate to severely decreased. LVEF is 30%. Grade I - abnormal relaxation pattern. Right Ventricle The right ventricle is normal size. The right ventricular systolic function is normal. Atria Left atrium is moderately dilated. The right atrium size is normal. Aortic Valve Mild aortic valve sclerosis. Mild aortic regurgitation. There is no aortic valvular stenosis. Mitral Valve There is mitral annular calcification. Mild mitral regurgitation. No evidence of mitral valve stenosis[place] [address] 2 D/M-MODE ECHOCARDIOGRAM Name: DANIEL ZHU Racheal Room: [address]#: [id number] Admission: 07/10/20 Attend Phys: Jose Beatty, Discharge: Date of : 32 Date of Service: 07/11/20 1750 Report #: [id number] The tricuspid valve is normal in structure. Mild to moderate eccentric jet of tricuspid regurgitation. Pulmonic Valve The pulmonary valve is normal in structure. There is no pulmonic valvular regurgitation. Great Vessels The aortic root is normal in size. IVC is normal in size and collapses >50% with inspiration. Pericardium There is no pericardial effusion. <Conclusion> The left ventricle is normal size. Moderate concentric left ventricular hypertrophy. Left ventricular systolic function is moderate to severely decreased. LVEF is 30%. Grade I - abnormal relaxation pattern. The right ventricle is normal size. Left atrium is moderately dilated. The right atrium size is normal. Mild aortic valve sclerosis. Mild aortic regurgitation. There is no aortic valvular stenosis. There is mitral annular calcification. Mild mitral regurgitation. The tricuspid valve is normal in structure. Mild to moderate eccentric jet of tricuspid regurgitation. IVC is normal in size and collapses >50% with inspiration. There is no pericardial effusion. Paradoxical septal motion, and distal septal apical hypokinesis. <ELECTRONICALLY SIGNED> By: Gilbert Chung MD, FACC 07/11/201749 49 49 Gilbert Chung MD, FACC /INF
[2020-07-11 20:00] VITALS: BP 121/47
[2020-07-12] VITALS (7 sets, daily range): BP systolic 123–149; BP diastolic 32–87
[2020-07-12 05:27] LABS: ABSOLUTE BASOPHILS 0.1 thou/uL (0.0-0.2); ABSOLUTE LYMPHOCYTES 1.2 thou/uL (0.8-5.3); ABSOLUTE MONOCYTES 0.7 thou/uL (0.0-1.2); ABSOLUTE NEUTROPHILS 6.7 thou/uL (1.6-8.1); BASOPHILS 0.6 %; EOSINOPHILS 0.1 %; HEMATOCRIT 21.7 % (37.0-47.0); LYMPHOCYTES 14.3 %; MCH 31.6 pg (26.0-34.0); MCV 95.8 fL (80.0-100.0); MONOCYTES 7.7 %; MPV 7.9 fl. (7.2-11.1); NUCLEATED RBCS 0 /100WBC; PLATELET COUNT* 268 thou/uL (150-400); POLYS 77.3 %; RBC 2.26 mil/uL (4.20-5.00); RDW-CV 16.7 % (10.5-14.5); WBC 8.7 thou/uL (4.0-11.0)
[2020-07-12 05:29] LABS: CREATININE 0.7 mg/dL (0.6-1.3); POTASSIUM 4.7 mmol/L (3.5-5.1)
[2020-07-12 05:31] LABS: HEMOGLOBIN 7.2 gm/dL (12.0-15.0)
--- NOTE | 2020-07-12 06:36 | NUR ---
PT HAD PAIN MEDICATION 3 TIMES SINCE ARRIVING FROM PACU. L HAND SWOLLEN AND UP ON PILLOWS X 2. GOOD CAP REFILL. GOOD SENSATION. L HIP WOUND VAC. GOOD SENSATION TO L FOOT. 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
--- NOTE | 2020-07-12 11:51 | NUR ---
Surgery yesterday. Therapies to eval today. ARU consulted.
--- NOTE | 2020-07-12 13:37 | EKG ---
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: TDS : 1930 Requested By: Raquel Hinds Order Number: [id number] MD: Gilbert Chung Measurements Intervals [facility] Rate: 64 P: 0 TX: 57 QRS: 17 QRSD: 166 T: 190 QT: 472 QTc: 487 Interpretive Statements Sinus rhythm Atrial premature complex First-degree AV block Left bundle branch block Compared to ECG 06/02/2020 20:08:22 Atrial premature complex(es) now present Electronically Signed On 07-12-2020 13:37:14 CDT by Gilbert Chung [email or web address] <ELECTRONICALLY SIGNED> By: Gilbert Chung MD, FACC 07/12/20 1337 1523 1523 Gilbert Chung MD, FACC /EPI
--- NOTE | 2020-07-12 18:45 | NUR ---
RECEIVED REPORT. ASSUMED CARE OF PT AROUND 0730. AM ASSESSMENT AND VITALS COMPLETED CHARTED. MEDS PER EMAR. POT PULLER IN PLACE CHARTED. ABDUCTOR PILLOW IN PLACE WHILE PT IN BED. PT ABLE TO WORK WITH THERAPIES THIS SHIFT. I UNIT PRBCS GIVEN. DAUGHTER AT BEDSIDE MOST OF SHIFT. LEFT ARM SPLINT IN PLACE. [place] WOUND VAC IN PLACE AND FUNCTIONING CORRECTLY. NO OUTPUT TODAY. PAIN TO LEFT HIP MANAGED WITH PO AND IV PAIN MEDICATION WITH PARTIAL RELIEF. PT CURRENTLY RESTING IN BED. CALL LIGHT IS WITHIN REACH. HOURLY ROUNDING PERFORMED. FALL PRECAUTIONS IN PLACE.
[2020-07-12 20:37] LABS: HEMATOCRIT 23.9 % (37.0-47.0); HEMOGLOBIN 7.9 gm/dL (12.0-15.0)
[2020-07-13] VITALS (7 sets, daily range): BP systolic 104–147; BP diastolic 47–69
[2020-07-13 04:57] LABS: HEMATOCRIT 25.9 % (37.0-47.0); HEMOGLOBIN 8.7 gm/dL (12.0-15.0)
[2020-07-13 05:07] LABS: CALCIUM 8.3 mg/dL (8.5-10.1); CREATININE 0.8 mg/dL (0.6-1.3)
[2020-07-13 05:09] LABS: POTASSIUM 3.6 mmol/L (3.5-5.1)
--- NOTE | 2020-07-13 05:20 | NUR ---
PT ALERT ORIENTED. FENTANYL GIVEN FOR PAIN. HARPER IMPULSE BOOTS IN PLACE. ABDUCTOR PILLOW. L HIP WITH WOUND VAC IN PLACE. TURNING Q 2 HRS. L HAND SWOLLEN AND BRUSED. ELEVATED ON 2 PILLOWS. GOOD CAP REFIL AND SENSATION. MEI WITH ADEQUATE UOP. TELEMETRY SHOWS SR. WILL CONTINUE TO MONITOR.
--- NOTE | 2020-07-13 10:16 | NUR ---
WOUND NURSE: CONSULTED FOR OPEN FULL THICKNESS PRESSURE INJURY TO COCCYX. DAUGHTER AT BEDSIDE. REPORTS COCCYX AREA HAD BEEN OPEN FOR "A FEW WEEKS" AND WAS PRESENT PRIOR TO ARRIVAL. OPEN AREA MEASURES 1CM X 0.8CM X 0.2CM AREA AROUND RED BUT BLANCHABLE. PT DENIES PAIN IN THE AREA. SPOKE TO DR. PAK AND ORDER RECIEVED. AQUACEL AG AND BOARDER FOAM APPLIED AFTER AREA CLANSED AND PATTED DRY. PICTURE TAKEN AND PUT IN CHART. ORTHO RESIDENT IN ROOM. REQUESTED TUBIGRIP FOR LEFT POST OP HAND/FOREARM FOR EDEMA IN HAND. HAND MEASURED AT 26CM AT MID PALM AND SIZE D TUBIGRIP APPLIED WITH RESIDENT ASSIST, FROM FINGER TIP TO MID FORARM OVER SPLINT AND EVON WRAP. TOLERATED WELL. EDUCATION FOR PATIENT AND DAUGHTER REGUARDING REPOSITIONG, WOUND CARE, COMPRESSION AND OPTIMAL HEALING ENVIROMENT. BECCAROSE VOICED CONCER DURING EDUCATION REGUARDING NUTRITION AND PATIENT ABILITY TO FEED HERSELF. PT WAS THEN ADDED TO FEEDING ASSIST LIST. PATIENT AND DAUGHTER VOICE UNDERSTANDING. REPORT TO PRIMARY RN
--- NOTE | 2020-07-13 14:57 | NUR ---
CM to have family meeting with Pt's dtrs tomorrow morning. ARU consulted. Dtr not wanting SNF. ?HH if Pt able to return home. Anticipate dc in 1-2 days
--- NOTE | 2020-07-13 19:52 | NUR ---
PT TRANSFERRED PER BED TO ROOM 105 WITH BELONGINGS ACCOMPANIED BY STAFF. ORIENTED TO ROOM AND CALL LITE. PT DENIES NEEDS AT PRESENT. ABDUCTOR PILLOW IN PLACE BETWEEN LEGS. DRSG TO L HIP CDI. L ARM WITH TUBIGRIP IN PLACE, FINGERS WARM, EDEMATOUS, PINK. MEI DRAINING YELLOW URINE. R FA SL. AOX4, CALL LITE IN EASY REACH, BED ALRM ON FOR SAFETY. WILL CONTINUE TO MONITOR AND PROVIDE CARES NEEDED.
[2020-07-14 03:39] VITALS: BP 143/57
[2020-07-14 04:32] LABS: ABSOLUTE BASOPHILS 0.1 thou/uL (0.0-0.2); ABSOLUTE EOSINOPHILS 0.2 thou/uL (0.0-0.7); ABSOLUTE LYMPHOCYTES 1.5 thou/uL (0.8-5.3); ABSOLUTE MONOCYTES 0.7 thou/uL (0.0-1.2); ABSOLUTE NEUTROPHILS 5.8 thou/uL (1.6-8.1); BASOPHILS 0.7 %; EOSINOPHILS 2.4 %; LYMPHOCYTES 18.4 %; MCH 31.1 pg (26.0-34.0); MCHC 33.3 g/dL (28.0-37.0); MCV 93.5 fL (80.0-100.0); MONOCYTES 8.5 %; MPV 7.5 fl. (7.2-11.1); NUCLEATED RBCS 0 /100WBC; PLATELET COUNT* 266 thou/uL (150-400); RBC 2.56 mil/uL (4.20-5.00); RDW-CV 16.4 % (10.5-14.5); WBC 8.3 thou/uL (4.0-11.0)
[2020-07-14 04:58] LABS: ALBUMIN 1.8 g/dL (3.4-5.0); CREATININE 0.8 mg/dL (0.6-1.3); POTASSIUM 3.7 mmol/L (3.5-5.1); TOTAL BILIRUBIN 0.9 mg/dL (<0.1-1.0); TOTAL PROTEIN 5.4 g/dL (6.4-8.2)
--- NOTE | 2020-07-14 05:19 | NUR ---
PT SLEPT WELL OVERNIGHT AFTER RECEIVING PO PAIN MED AT HS. RFA SL. MEI DRAINING YELLOW URINE. LHIP DRSG CDI WITH WOUND VAC ON AND OPERATING. DRSG TO COCCYX CDI. ABDUCTOR PILLOW IN PLACE WHILE IN BED. ABLE TO USE CALL LITE AND MAKE NEEDS KNOWN. CM FOLLOWING FOR DC PLAN-REHAB, SNF OR HOME WITH HH-PT LIVES WITH DTR. AM LABS DRAWN. ABLE TO USE CALL LITE AND MAKE NEEDS KNOWN.
[2020-07-14 08:00] VITALS: BP 122/45
--- NOTE | 2020-07-14 10:58 | NUR ---
SPOKE WITH PRIMARY RN. REPORT DRESSING PLACED YESTERDAY C/D/I. DENEIS QUESTIONS OR NEEDS. ALSO SPOKE WITH PT AND DAUGHTER AT BEDSIDE. PT REPORTS LESS DISCOMFORT WITH DRESSING AND DENIES QUESTIONS OR NEEDS.
--- NOTE | 2020-07-14 13:46 | NUR ---
CM had meeting with Pt's 2 dtrs this morning. Pt to have surgery for her broken elbow on Friday. Plan post surgery is to see if Pt will qualify for possibly a low endurance program on ARU. Pt recenly left skilled, she may have 2 skilled days left at 100%, Pt does not have the monies available to pay for copay days. If Pt does not qualify for ARU, dtrs plan to take Pt home with HH. Per dtrs, they have a lot of family support available to assist.
--- NOTE | 2020-07-14 19:24 | NUR ---
PT HAD GOOD DAY, DAUGHTER AT BEDSIDE FOR SUPPORT, DENIES PAIN BUT IS HAVING SOME DIZZINESS, AM BP MEDS HELD AND PRESSURE DID GO UP TO STABLE READING. SHE SAT IN WC FOR A COUPLE HOURS TODAY AND ENJOYED THIS. TRANSFERS WITH SLIDE BOARD WELL. MEI IN PLACE WITH CLEAR YELLOW URINE. TYLENOL GIVEN FOR COMFORT. PT ATE WELL/ ANTICIPATING SURG ON LT ARM ON .
[2020-07-14 20:40] VITALS: BP 116/52
[2020-07-15 05:04] LABS: ABSOLUTE BASOPHILS 0.1 thou/uL (0.0-0.2); ABSOLUTE EOSINOPHILS 0.2 thou/uL (0.0-0.7); ABSOLUTE LYMPHOCYTES 1.4 thou/uL (0.8-5.3); ABSOLUTE MONOCYTES 0.6 thou/uL (0.0-1.2); ABSOLUTE NEUTROPHILS 4.5 thou/uL (1.6-8.1); BASOPHILS 1.1 %; EOSINOPHILS 2.8 %; HEMATOCRIT 25.6 % (37.0-47.0); HEMOGLOBIN 8.7 gm/dL (12.0-15.0); LYMPHOCYTES 21.1 %; MCH 31.7 pg (26.0-34.0); MCHC 34.2 g/dL (28.0-37.0); MCV 92.7 fL (80.0-100.0); MONOCYTES 8.6 %; MPV 7.5 fl. (7.2-11.1); NUCLEATED RBCS 0 /100WBC; PLATELET COUNT* 325 thou/uL (150-400); POLYS 66.4 %; RBC 2.76 mil/uL (4.20-5.00); RDW-CV 15.9 % (10.5-14.5); WBC 6.7 thou/uL (4.0-11.0)
--- NOTE | 2020-07-15 05:15 | NUR ---
PT SLEPT WELL OVERNIGHT, MAINTAINING ABDUCTOR PILLOW BETWEEN LEGS WHILE IN BED. WOUND VAC ON AND OPERATING TO L HIP. L HIP DRSG CDI. RWRIST SL IV. ROOM AIR. MEI DRAINING YELLOW URINE. AM LABS. SPLINT EVON WRAP AND TUBIGRIP REMAIN INTACT TO L ARM. SCD FOOT PUMPS ON BLE.BED ALARM ON FOR SAFETY. ABLE TO USE CALL LITE AND MAKE NEEDS KNOWN.
[2020-07-15 05:49] LABS: CALCIUM 8.1 mg/dL (8.5-10.1); CREATININE 0.6 mg/dL (0.6-1.3); POTASSIUM 3.8 mmol/L (3.5-5.1)
[2020-07-15 08:30] VITALS: BP 147/66
[2020-07-15 16:01] VITALS: BP 128/53
--- NOTE | 2020-07-15 18:14 | NUR ---
PT IS AO X4 WITH DAUGHTER AT BEDSIDE FOR SUPPORT TODAY. PT ADMITS SHE DOESNT EAT MUCH AND ISNT HUNGRY. HER DAUGHTER CALLED THE KITCHEN AND ORDERED FOOD THAT SHE LIKED AND THAT WERE SOFT. AGAIN TODAY SHE WAS FEELING DIZZY AND OUT OF SORTS. I DID NOT GIVE HER ANY NARCOTIC MEDS AND SHE DID GET ALL HER BP MEDS THIS AM. PRESSURE WAS LOW BUT NOT CONCERNING TO DR SINGH WHO WE CALLED TO REPORT PTs CONDITION TO. HE ORDERED A CT OF THE HEAD THAT WAS NEG. PT STATES SHE HAS NO VISUAL ISSUES, NOT FEELING FAINT, JUST FEELS WEAK AND OUT OF SORTS SHE SAT IN THE WHEELCHAIR FOR 4-5 HRS HAD A SMALL HARD BM AND THEN BACK TO BED . THIS PM DAUGHTER REPORTS HER PAIN IS SOMEWHAT INCREASED. WCTM
[2020-07-15 21:10] VITALS: BP 129/56
--- NOTE | 2020-07-16 04:27 | NUR ---
KEPT LEFT ELBOW ELEVATED, OFFERED ICE. SHE REPORTED NO PAIN EVERY EVALUATION DID NOT WANT ANY PAIN MEDICATION. SHE IS A Q2 TURN. COCCYX WOUND HAS DRESSING THAT IS C/D/I. MEI CLEAR YELLOW OUTPUT. SHE WAS ABLE TO SLEEP ALL NIGHT AND DID NOT REPORT AND DISCOMFORT.
[2020-07-16 08:10] VITALS: BP 149/77
[2020-07-16 15:43] VITALS: BP 132/58
--- NOTE | 2020-07-16 16:44 | NUR ---
PATIENT ALERT AND ORIENTED X 4. VITAL SIGNS STABLE ON ROOM AIR. UP WITH MAX ASSIST TO CHAIR FOR MEALS. HIP PRECAUTIONS MAINTAINED. IV PATENT AND SALINE LOCKED. MEI PANTENT AND DRAINING DEPENDENTLY. PAIN BEING MANAGED WITH PO MEDICATION. DENIES NAUSEA AT THIS TIME. DRESSINGS TO LEFT ARM AND LEFT HIP CLEAN DRY AND INTACT. LEFT ELBOW ELEVATED ON PILLOW. FALL PRECAUTIONS IN PLACE AND BED/CHAIR ALARM ON. HOURLY ROUNDS MAINTAINED THROUGHOUT THE SHIFT. CALL LIGHT WITHIN REACH. NURSING WILL CONTINUE TO MONITOR.
[2020-07-17 03:53] LABS: ABSOLUTE BASOPHILS 0.1 thou/uL (0.0-0.2); ABSOLUTE EOSINOPHILS 0.2 thou/uL (0.0-0.7); ABSOLUTE MONOCYTES 0.8 thou/uL (0.0-1.2); ABSOLUTE NEUTROPHILS 4.1 thou/uL (1.6-8.1); BASOPHILS 1.5 %; EOSINOPHILS 3.1 %; HEMATOCRIT 26.1 % (37.0-47.0); HEMOGLOBIN 8.6 gm/dL (12.0-15.0); LYMPHOCYTES 27.9 %; MCH 30.7 pg (26.0-34.0); MCHC 32.9 g/dL (28.0-37.0); MCV 93.1 fL (80.0-100.0); MONOCYTES 10.5 %; NUCLEATED RBCS 0 /100WBC; PLATELET COUNT* 386 thou/uL (150-400); RDW-CV 15.4 % (10.5-14.5); WBC 7.2 thou/uL (4.0-11.0)
[2020-07-17 04:16] LABS: CALCIUM 8.4 mg/dL (8.5-10.1); CREATININE 0.7 mg/dL (0.6-1.3); POTASSIUM 4.1 mmol/L (3.5-5.1)
--- NOTE | 2020-07-17 05:01 | NUR ---
ASSUMED PT'S CARE THIS SHIFT. PT ALERT AND ORIENTED. VSS ON RA. MEDS GIVEN PER EMAR. PRN PAIN MED GIVEN THIS SHIFT. FALL PRECAUTION IN PLACE. Q2 TURN. MEI FOR VOIDING. CALL LIGHT WITHIN REACH. WILL CONTINUE TO MONITOR.
[2020-07-17 08:07] VITALS: BP 141/67
--- NOTE | 2020-07-17 15:38 | NUR ---
PT.IN SURGERY MOST OF DAY TODAY FOR ELBOW SURGERY. CM DID NOT SEE.
--- NOTE | 2020-07-17 16:02 | NUR ---
PT WORKED WITH PT/OT TODAY. UP TO CHAIR. MAX ASSIST TO BSC. HAMIDA TO DD. DENIES NEED FOR PAIN MEDICATION. L ARM IN EVON WRAP WITH TUBIGRIP. ELEVATED ON PILLOW.
[2020-07-17 16:07] VITALS: BP 160/49
--- NOTE | 2020-07-17 16:34 | NUR ---
PT.HAVING ELBOW SURGERY TOMORROW. CONTINUES TO HOPE SHE CAN GO TO OUR INPT.REHAB UNIT IN SEVERAL DAYS.
[2020-07-17 20:23] VITALS: BP 114/50
--- NOTE | 2020-07-18 04:56 | NUR ---
PT A&OX4, VSS ON ROOM AIR, NO C/O DIZZINESS THIS SHIFT, MEI IN PLACE, WOUND VAC IN PLACE, TOTAL HIP PRECAUTIONS MAINTAINED, PT TURNED Q2H. SURGERY PLANNED FOR 1440 ON 07/18 WITH NO NPO ORDER, PT PLACED ON NPO SINCE MIDNIGHT, WILL FOLLOWUP WITH ORTHO PHYSICIAN THIS AM. PAIN MED REQUESTED AND GIVEN ORDERED. HOURLY ROUNDINGS COMPLETE, WILL CONTINUE TO MONITOR.
[2020-07-18 07:40] VITALS: BP 163/61
[2020-07-18 09:29] LABS: ABSOLUTE BASOPHILS 0.1 thou/uL (0.0-0.2); ABSOLUTE EOSINOPHILS 0.2 thou/uL (0.0-0.7); ABSOLUTE LYMPHOCYTES 1.5 thou/uL (0.8-5.3); ABSOLUTE MONOCYTES 0.6 thou/uL (0.0-1.2); ABSOLUTE NEUTROPHILS 4.8 thou/uL (1.6-8.1); BASOPHILS 1.1 %; EOSINOPHILS 2.9 %; HEMATOCRIT 27.5 % (37.0-47.0); HEMOGLOBIN 9.1 gm/dL (12.0-15.0); LYMPHOCYTES 21.5 %; MCH 30.9 pg (26.0-34.0); MCHC 33.2 g/dL (28.0-37.0); MCV 93.1 fL (80.0-100.0); MONOCYTES 7.9 %; MPV 6.1 fl. (7.2-11.1); NUCLEATED RBCS 0 /100WBC; PLATELET COUNT* 447 thou/uL (150-400); POLYS 66.6 %; RBC 2.95 mil/uL (4.20-5.00); WBC 7.2 thou/uL (4.0-11.0)
[2020-07-18 09:46] LABS: CALCIUM 8.5 mg/dL (8.5-10.1); CREATININE 0.6 mg/dL (0.6-1.3); POTASSIUM 4.6 mmol/L (3.5-5.1); TOTAL PROTEIN 6.2 g/dL (6.4-8.2)
[2020-07-18 14:21] VITALS: BP 163/61
--- NOTE | 2020-07-18 17:24 | NUR ---
PT REMAINED ALERT AND ORIENTED. PT IN SURGERY CURRENTLY, AWAITING PACU TO CALL FOR PATIENTS RETURN. FALL RISK PRECAUTIONS IN PLACE. HOURLY ROUNDING COMPLETED. WILL CONTINUE TO MONITOR.
--- NOTE | 2020-07-18 17:31 | NUR ---
SPOKE WITH PTS DAUGHTER. PT.TO HAVE SURGERY TODAY ON ELBOW. PLAN IS POTENTIALLY TO HAVE PT.GO TO INPT.REHAB HER SNF DAYS ARE USED. TOLD HER THAT INS. WOULD NEED TO AUTHORIZE REHAB,HOWEVER. SHE WAS INTERESTED IN GETTING PT.MEDICAID HER SECONDARY INS. GAVE HER [employer] PHONE NUMBER TO SET UP APPT.
[2020-07-18 20:00] VITALS: BP 116/54
[2020-07-19 01:00] VITALS: BP 104/51
[2020-07-19 03:56] VITALS: BP 130/58
[2020-07-19 04:07] LABS: ABSOLUTE BASOPHILS 0.1 thou/uL (0.0-0.2); ABSOLUTE LYMPHOCYTES 2.2 thou/uL (0.8-5.3); ABSOLUTE MONOCYTES 0.8 thou/uL (0.0-1.2); ABSOLUTE NEUTROPHILS 9.5 thou/uL (1.6-8.1); BASOPHILS 0.7 %; EOSINOPHILS 0.2 %; HEMATOCRIT 27.8 % (37.0-47.0); HEMOGLOBIN 9.1 gm/dL (12.0-15.0); LYMPHOCYTES 17.5 %; MCH 30.7 pg (26.0-34.0); MCHC 32.7 g/dL (28.0-37.0); MCV 93.9 fL (80.0-100.0); MONOCYTES 6.3 %; MPV 6.5 fl. (7.2-11.1); NUCLEATED RBCS 0 /100WBC; POLYS 75.3 %; RBC 2.96 mil/uL (4.20-5.00); RDW-CV 16.1 % (10.5-14.5); WBC 12.6 thou/uL (4.0-11.0)
[2020-07-19 04:24] LABS: PLATELET COUNT* 534 thou/uL (150-400)
--- NOTE | 2020-07-19 04:27 | NUR ---
PT A&O X 3-4, FORGETFUL AT TIMES. ON RA. DENIED N/V. DRESSINGS TO LT HIP C/D/I. WOUND VAC IN PLACE. LT ARM ON PILLOWS. DRESSING INTACT. TYLENOL GIVEN FOR MILD PAIN. HIP PRECAUTIONS MAINTAINED. MEI IN PLACE. CALL LIGHT WITHIN REACH. HOURLY ROUNDINGS MADE. WILL CONTINUE TO MONITOR.
[2020-07-19 04:50] LABS: ALBUMIN 2.1 g/dL (3.4-5.0); CALCIUM 8.6 mg/dL (8.5-10.1); POTASSIUM 4.8 mmol/L (3.5-5.1); TOTAL BILIRUBIN 0.8 mg/dL (<0.1-1.0); TOTAL PROTEIN 6.3 g/dL (6.4-8.2)
[2020-07-19 10:30] VITALS: BP 122/63
--- NOTE | 2020-07-19 14:00 | NUR ---
AWAITING PT/OT EVALS AND REHAB CONSULT DETERMINATION FOR PT.
[2020-07-19 15:54] VITALS: BP 121/67
[2020-07-20 03:44] VITALS: BP 148/71
--- NOTE | 2020-07-20 07:39 | NUR ---
PATIENT SLEPT MOST OF THE NIGHT. PATIENT WAS GIVEN PAIN MEDICINE. ONCE THIS SHIFT. WILL CONTINUE TO MONITOR,
[2020-07-20 07:50] VITALS: BP 122/60
--- NOTE | 2020-07-20 09:57 | NUR ---
WOUND NURSE: PATIENT SEEN FOR F/U ASSESSMENT PERTAINING TO SACRAL STAGE 3 PRESSURE INJURY. NO CHANGE IN WOUND MEASUREMENTS. PRESENTS WITH PARTIAL THICKNESS TISSUE LOSS ALONG THE WOUND EDGES AND BEIGE NONGRANULATING TISSUE IN THE CENTER OF THE WOUND BED. CLEANSED WITH WOUND CLEANSER AND GAUZE. APPLIED SKIN PREP TO INTACT PERIWOUND TISSUE. APPLIED AQUACEL AG UNDER SACRAL BORDERED FOAM DRESSING. REPOSITIONED ONTO HER LEFT SIDE SO SHE CAN VISIT WITH FAMILY. PATIENT INSTRUCTED ON NEED TO OFFLOAD WOUND AND CONSUME ADEQUATE PROTEIN TO PROMOTE HEALING. PATIENT STATES SHE UNDERSTANDS.
--- NOTE | 2020-07-20 11:30 | NUR ---
SPOKE WITH PT.AND DAUGHTER,CLARITZA, WITH . DOES NOT FEEL PT.APPROPRIATE FOR INPT.REHAB UNIT. DISCUSSED SNF WITH THEM CLARITZA SAID SHE IS OUT OF HER DAYS THAT [employer] WILL PAY AND THEY CANNOT AFFORD A DAILY COPAY. SHE ASKED THAT CM FIND OUT HOW MANY SKILLED DAYS SHE HAS LEFT AND HOW MUCH EACH DAY WOULD COST THEM. CALLED [facility]. SHE WILL HAVE HER BUSINESS OFFICE CHECK ON THIS AND GET BACK TO . 1630-LEFT MESSAGES FOR [facility] TO CALL CM BACK. NO RETURN CALL. NOTIFIED CLARITZA/DAUGHTER TO LET HER KNWO I SHOULD HEAR SOMETHING IN THE AM.
[2020-07-20 12:37] LABS: ABSOLUTE BASOPHILS 0.1 thou/uL (0.0-0.2); ABSOLUTE EOSINOPHILS 0.1 thou/uL (0.0-0.7); ABSOLUTE LYMPHOCYTES 1.4 thou/uL (0.8-5.3); ABSOLUTE MONOCYTES 0.6 thou/uL (0.0-1.2); ABSOLUTE NEUTROPHILS 5.7 thou/uL (1.6-8.1); BASOPHILS 1.2 %; EOSINOPHILS 1.9 %; HEMOGLOBIN 8.3 gm/dL (12.0-15.0); LYMPHOCYTES 17.9 %; MCH 31.4 pg (26.0-34.0); MCHC 33.4 g/dL (28.0-37.0); MCV 94.1 fL (80.0-100.0); MONOCYTES 7.2 %; MPV 6.6 fl. (7.2-11.1); NUCLEATED RBCS 0 /100WBC; PLATELET COUNT* 466 thou/uL (150-400); POLYS 71.8 %; RBC 2.66 mil/uL (4.20-5.00); RDW-CV 16.6 % (10.5-14.5); WBC 7.9 thou/uL (4.0-11.0)
[2020-07-20 12:39] LABS: CALCIUM 8.1 mg/dL (8.5-10.1); CREATININE 0.8 mg/dL (0.6-1.3); POTASSIUM 3.8 mmol/L (3.5-5.1); TOTAL BILIRUBIN 0.6 mg/dL (<0.1-1.0); TOTAL PROTEIN 6.1 g/dL (6.4-8.2)
[2020-07-20 16:00] VITALS: BP 109/40
--- NOTE | 2020-07-20 19:47 | NUR ---
PATIENT RESTING IN BED. PATIENT WORKED WITH PHYSICAL THERPAY THIS AFTERNOON. PATIENT HAS ABDUCTOR PILLOW WHILE IN BED. PATIENT SEEN BY WOUND CARE THIS AM FOR COCCYX WOUND. PATIENT TURNED FOR PRESSURE RELIEF. PATIENT HAS HAD COMPLAINTS OF PAIN TREATED ADEQUATELY WITH MEDICATION. PROVENA WOUND VAC NOT WORKING, SPOKE WITH ORTHO DR JARAMILLO TO REMOVE AND PLACE DRESSING, WHICH WAS DONE. PATIENT DENIES ANY NEEDS AT THIS TIME. CALL LIGHT WITHIN REACH.
[2020-07-20 20:00] VITALS: BP 110/54
--- NOTE | 2020-07-21 04:59 | NUR ---
ASSESSMENT: PT REMAIN ALERT AND ORIENT TIMES THREE. LEFT ARM AND LEFT LE DRESSING INTACT. PT DENIES PAIN BUT STATE THAT HER COCCXY IS PAINFUL YET DENIED PAIN MEDS. PT TURNED EVERY TWO HOURS. VSS, AFEBRILE. MEI PATENT. NO BM. TOLERATING PO INTAKE. SLOW PROGRESS TOWARDS DC GOALS,. WILL CONTINUE TO MONITOR.
[2020-07-21 07:55] VITALS: BP 129/55
--- NOTE | 2020-07-21 09:15 | NUR ---
HEARD BACK FROM [facility] THIS AM. PT.HAS USED 18 SNF DAYS. SHE WOULD HAVE 82 COPAY DAYS REMAINING. DAILY COPAY WOULD BE APPROX. $178/DAY. THEY WOULD NEED A CREDIT CARD ON FILE FOR PT.AND CHARGE WEEKLY. THEY WOULD REFUND ANY DAYS NOT USED. LEFT MESSAGE FOR CLARITZA/PTS DAUGHTER TO CALL CM BACK TO DISCUSS.
--- NOTE | 2020-07-21 10:18 | NUR ---
Faxed Preservice Auth Request to [facility] fax: [phone] Faxed referral packet to [facility] fax: [phone] (awaiting call to ) CM to continue to follow for D/C planning.
[2020-07-21 15:25] VITALS: BP 113/45
--- NOTE | 2020-07-21 17:29 | NUR ---
PT REMAINED ALERT AND ORIENTED. Q2 TURNS COMPLETED. PT RESTING IN BED. HAD BM TODAY. WORKED WITH THERAPY AND UP TO CHAIR FOR LUNCH. FALL RISK PRECAUTIONS IN PLACE. HOURLY ROUNDING COMPLATED. WILL CONTINUE TO MONITOR.
--- NOTE | 2020-07-21 18:05 | NUR ---
SPOKE WITH DAUGHTER,CLARITZA,SEVERAL TIMES TODAY. 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 FAMILY CONTINUES TO STATE THEY CANNOT AFFORD COPAY DAYS AND CONTINUE TO WANT TO TAKE PT.HOME. DISCUSSED WITH MARISELA SPARKS. NO DISCHARGE TODAY. CM NOTIFIED Aiyana/[facility] AND [facility] THAT FAMILY DECLINING SNF AT THIS TIME.
[2020-07-21 20:00] VITALS: BP 106/41
--- NOTE | 2020-07-22 05:16 | NUR ---
PT A&O X 4, FORGETFUL AT TIMES. NO C/O PAIN. LUE ON PILLOW. DRESSING TO LT HIP INTACT. PT SLEPT ON AND OFF. MEI IN PLACE. CALL LIGHT WITHIN REACH. HOURLY ROUNDINGS, TURNS MADE. WILL CONTINUE TO MONITOR.
[2020-07-22 07:27] VITALS: BP 159/63
[2020-07-22 07:34] LABS: ABSOLUTE BASOPHILS 0.1 thou/uL (0.0-0.2); ABSOLUTE EOSINOPHILS 0.2 thou/uL (0.0-0.7); ABSOLUTE LYMPHOCYTES 1.6 thou/uL (0.8-5.3); ABSOLUTE MONOCYTES 0.6 thou/uL (0.0-1.2); ABSOLUTE NEUTROPHILS 5.7 thou/uL (1.6-8.1); BASOPHILS 1.4 %; EOSINOPHILS 2.7 %; HEMATOCRIT 25.4 % (37.0-47.0); HEMOGLOBIN 8.3 gm/dL (12.0-15.0); LYMPHOCYTES 19.9 %; MCH 30.7 pg (26.0-34.0); MCHC 32.7 g/dL (28.0-37.0); MCV 93.6 fL (80.0-100.0); MONOCYTES 6.7 %; MPV 6.2 fl. (7.2-11.1); NUCLEATED RBCS 0 /100WBC; PLATELET COUNT* 505 thou/uL (150-400); POLYS 69.3 %; RBC 2.72 mil/uL (4.20-5.00); RDW-CV 16.3 % (10.5-14.5); WBC 8.3 thou/uL (4.0-11.0)
[2020-07-22 07:44] LABS: CALCIUM 8.4 mg/dL (8.5-10.1); CREATININE 0.6 mg/dL (0.6-1.3); POTASSIUM 4.6 mmol/L (3.5-5.1)
[2020-07-22] MEDS ORDERED: OXYCODONE HCL 55 MG PO (09:51)
[2020-07-22] MEDS ORDERED: SPIRONOLACTONE25 MG PO (09:51)
[2020-07-22] MEDS ORDERED: METOPROLOL SUCC25 M1 PO (09:51)
[2020-07-22] MEDS ORDERED: ELIQUIS5 MG PO (09:51)
[2020-07-22 12:17] VITALS: BP 159/63
--- NOTE | 2020-07-22 12:53 | NUR ---
PT GIVEN DISCHARGE INFORMATION AND CARE NOTES, PRESCRIPTIONS FAXED TO PHARMACY. IV AND MEI REMOVED. DRESSING CHANGED AND PICTURES TAKEN. PT BELONGINGS GATHERED. HOME HEALTH SET UP. PT ALREADY HAS WHEELCHAIR. FALL RISK PRECAUTIONS IN PLACE. HOURLY ROUNDING COMPLETED.
== END 2020-07-22 12:54 | disposition home health service (06) | DRG 521 ==
LOC: M.ERS 12:34 → M.2W 15:06 → M.TBA-ER 15:06 → M.2W 19:45 → M.ORTHSURG 07-13 20:05 → M.3W 07-19 21:08
PROVIDERS: Nurse Practitioner Family; Orthopaedic Surgery; Personal Emergency Response Attendant; Registered Nurse; ADMIT Internal Medicine; ATTEND Internal Medicine
DX: M80.052A Age-related osteoporosis with current pathological fracture, left femur, initial encounter for fracture (principal); G92 Toxic encephalopathy; E44.0 Moderate protein-calorie malnutrition; I42.9 Cardiomyopathy, unspecified; I50.22 Chronic systolic (congestive) heart failure; D62 Acute posthemorrhagic anemia; M80.022A Age-related osteoporosis with current pathological fracture, left humerus, initial encounter for fracture; Z20.828 Contact with and (suspected) exposure to other viral communicable diseases; I44.7 Left bundle-branch block, unspecified; M06.9 Rheumatoid arthritis, unspecified; I11.0 Hypertensive heart disease with heart failure; Z96.641 Presence of right artificial hip joint; Z68.23 Body mass index [BMI] 23.0-23.9, adult; Z79.01 Long term (current) use of anticoagulants; Z79.899 Other long term (current) drug therapy; Z87.891 Personal history of nicotine dependence

== ENCOUNTER 2020-08-12 17:28 | Emergency (ER) | payer OTHER ==
[~2020-08-12] VITALS: Ht 162.6 cm; Wt 45.4 kg
[~2020-08-12 17:28] MED LIST changes: +METOPROLOL SUCC25 M1 PO; +SPIRONOLACTONE25 MG PO
[2020-08-12 17:56] LABS: ABSOLUTE LYMPHOCYTES 1.3 thou/uL (0.8-5.3); ABSOLUTE MONOCYTES 0.6 thou/uL (0.0-1.2); ABSOLUTE NEUTROPHILS 10.7 thou/uL (1.6-8.1); BASOPHILS 0.3 %; EOSINOPHILS 0.4 %; HEMOGLOBIN 12.5 gm/dL (12.0-15.0); LYMPHOCYTES 9.9 %; MCH 30.6 pg (26.0-34.0); MCHC 32.9 g/dL (28.0-37.0); MCV 93.1 fL (80.0-100.0); MONOCYTES 4.5 %; MPV 7.1 fl. (7.2-11.1); NUCLEATED RBCS 0 /100WBC; PLATELET COUNT* 321 thou/uL (150-400); POLYS 84.9 %; RBC 4.08 mil/uL (4.20-5.00); RDW-CV 15.8 % (10.5-14.5); WBC 12.6 thou/uL (4.0-11.0)
[2020-08-12 18:05] LABS: APTT 29.2 Seconds (25.0-31.3); PROTIME 10.9 Seconds (9.20-11.50)
[2020-08-12 18:07] LABS: CALCIUM 8.6 mg/dL (8.5-10.1); CREATININE 0.6 mg/dL (0.6-1.3)
[2020-08-12 18:23] LABS: TOTAL BILIRUBIN 0.9 mg/dL (<0.1-1.0); TOTAL PROTEIN 7.5 g/dL (6.4-8.2)
[2020-08-12] MEDS ORDERED: ZOFRAN ODT4 MG SUBLING (18:41)
[2020-08-12] MEDS ORDERED: CIPROFLOXACIN500 M1 PO (18:41)
[2020-08-12 19:00] VITALS: BP 162/68
--- NOTE | 2020-08-13 12:03 | EKG ---
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
== END 2020-08-12 19:00 | disposition home or self-care (01) ==
LOC: M.ERS 17:28
PROVIDERS: Family Medicine
DX: R19.7 Diarrhea, unspecified (principal); Z20.828 Contact with and (suspected) exposure to other viral communicable diseases; R53.1 Weakness; R63.0 Anorexia; I10 Essential (primary) hypertension; M06.9 Rheumatoid arthritis, unspecified; R79.1 Abnormal coagulation profile; Z79.899 Other long term (current) drug therapy; Z87.891 Personal history of nicotine dependence

== ENCOUNTER 2020-08-24 13:02 | Inpatient (IN) | payer OTHER ==
[~2020-08-24] VITALS: Ht 160 cm; Wt 45.4 kg
[~2020-08-24 13:02] MED LIST changes: +CIPROFLOXACIN500 M1 PO; +ZOFRAN ODT4 MG SUBLING
[2020-08-24 13:06] VITALS: BP 148/79
[2020-08-24 15:03] LABS: ABSOLUTE EOSINOPHILS 0.2 thou/uL (0.0-0.7); ABSOLUTE LYMPHOCYTES 1.9 thou/uL (0.8-5.3); ABSOLUTE MONOCYTES 0.6 thou/uL (0.0-1.2); ABSOLUTE NEUTROPHILS 6.4 thou/uL (1.6-8.1); BASOPHILS 0.3 %; EOSINOPHILS 2.7 %; HEMATOCRIT 36.1 % (37.0-47.0); HEMOGLOBIN 11.9 gm/dL (12.0-15.0); LYMPHOCYTES 20.3 %; MCH 30.1 pg (26.0-34.0); MCHC 32.8 g/dL (28.0-37.0); MCV 91.7 fL (80.0-100.0); MONOCYTES 6.9 %; NUCLEATED RBCS 0 /100WBC; PLATELET COUNT* 361 thou/uL (150-400); POLYS 69.8 %; RBC 3.94 mil/uL (4.20-5.00); RDW-CV 16.3 % (10.5-14.5); WBC 9.2 thou/uL (4.0-11.0)
[2020-08-24 15:12] LABS: CALCIUM 8.5 mg/dL (8.5-10.1); CREATININE 0.6 mg/dL (0.6-1.3); POTASSIUM 4.1 mmol/L (3.5-5.1)
[2020-08-24 15:15] LABS: APTT 30.4 Seconds (25.0-31.3); INR 1.1; PROTIME 11.2 Seconds (9.20-11.50)
[2020-08-24 15:16] LABS: TOTAL BILIRUBIN 0.5 mg/dL (<0.1-1.0); TOTAL PROTEIN 7.3 g/dL (6.4-8.2)
[2020-08-24 16:34] LABS: URINE BILIRUBIN NEGATIVE (Negative); URINE BLOOD TRACE (Negative); URINE CLARITY CLEAR; URINE COLOR YELLOW; URINE GLUCOSE-RANDOM NEGATIVE (Negative); URINE KETONES NEGATIVE (Negative); URINE LEUKOCYTES 1+ (Negative); URINE NITRITE POSITIVE (Negative); URINE PROTEIN NEGATIVE (Negative); URINE SPECIFIC GRAVITY 1.015 (1.005-1.030)
[2020-08-24 16:51] LABS: BACTERIA >30 Many /HPF (None Seen); CASTS None Seen /LPF (None Seen); SQUAMOUS 0-3 Few /LPF (0-3); URINE RBC None Seen /HPF (0-2); URINE WBC >25 Many /HPF (0-5)
[2020-08-24 16:52] LABS: CRYSTALS None Seen /LPF (None Seen); WBC CLUMPS Few (None Seen)
--- NOTE | 2020-08-24 18:47 | NUR ---
PT HAS PUREWICK PLACED.
[2020-08-24 19:40] VITALS: BP 142/72
[2020-08-24 22:00] VITALS: BP 122/74
--- NOTE | 2020-08-25 04:53 | NUR ---
PT ARRIVED TO THE UNIT AT 2240. A&O X 4. VSS ON RA. IBUPROFEN GIVEN FOR MILD PAIN. SACRAL WOUND DRESSING CHANGED, PICTURE TAKEN. HOURLY ROUNDINGS, TURNS MADE. CALL LIGHT WITHIN REACH. WILL CONTINUE TO MONITOR.
[2020-08-25 08:46] VITALS: BP 171/78
[2020-08-25 16:00] VITALS: BP 137/72
--- NOTE | 2020-08-25 16:00 | NUR ---
PT.ALERT AND ORIENTED,RESTING IN BED. SHE SAID SHE HAD BEEN GETTING ALONG PRETTY WELL AT HOME. HER DAUGHTER,CLARITZA LIVES WITH HER. SHE AND PTS OTHER CECELIAER, HELP HER NEEDED. SHE IS CURRENT WITH [facility]. SHE HAS GOTTEN TO WHERE SHE CAN WALK SHORT DISTANCES DOWN THE HALLWAY WITH HER WALKER. PLANS TO RETURN HOME AT DISCHARGE AND CONTINUE WITH [facility] . [facility] CALLED NURSES STATION AND ARE AWARE SHE IS IN THE HOSPITAL.
--- NOTE | 2020-08-25 18:02 | NUR ---
PT A&Ox4. VITALS STABLE. UP WITH 1 MAX ASSIST, PIVOT TO CAMMODE. DENIED PAIN. ATE WELL. PT STARTED BOWEL PREP FOR CONSTIPATION. FALL PRECAUTIONS IN PLACE. CALL LIGHT WITHIN REACH. WILL CONTINUE TO MONITOR.
[2020-08-25 20:00] VITALS: BP 146/80
--- NOTE | 2020-08-26 05:08 | NUR ---
ASSUMED PT'S CARE THIS PM SHIFT. PT ALERT AND ORIENTED. VSS ON RA. MEDS GIVEN PER EMAR. PRN TYLENOL ORDERED PER DR MAS AND GIVEN PER PT'S REQUEST FOR RIGHT SHOULDER PAIN. PT DECLINED HEATING PAD ORDERED BY DR MAS. PT STILL TAKING GO LYTELY. PT HAD A LARGE BM THIS SHIFT. SEEMED LIKE SHE STRAINED THERE WERE TRACES OF BLOOD PER TECH'S REPORT BECAUSE SHE WITNESSED IT. FALL PRCAUTION IN PLACE. CALL LIGHT WTHIN REACH. WILL CONTINUE TO MONITOR.
[2020-08-26 08:10] VITALS: BP 163/90
[2020-08-26] MEDS ORDERED: MIRTAZAPINE15 M2 PO (15:50)
[2020-08-26] MEDS ORDERED: SENNA8.6 MG PO (15:51)
[2020-08-26] MEDS ORDERED: ZOFRAN4 MG PO (15:51)
[2020-08-26] MEDS ORDERED: CEFDINIR300 MG PO (15:52)
[2020-08-26 15:58] VITALS: BP 163/90
--- NOTE | 2020-08-26 16:48 | NUR ---
PATIENT DISCHARGED FROM UNIT AT 1630. ALERT AND ORIENTED X 4. VITAL SIGNS STABLE ON ROOM AIR. UP WITH ONE TO WHEELCHAIR. IV DISCONTINUED. DENIES PAIN AT THIS TIME. NAUSEA MANAGED WITH IV MEDICATION. DISCHARGE INSTRUCTIONS AND MEDICATION INFORMATION GIVEN TO PATIENT. LEFT WITH ALL BELONGINGS. PATIENT LEFT WITH DAUGHTER VIA VAN.
== END 2020-08-26 16:30 | disposition home health service (06) | DRG 689 ==
LOC: M.ERS 13:02 → M.3W 18:12 → M.TBA-ER 18:12 → M.3W 22:40
PROVIDERS: Physician Assistant; ADMIT Internal Medicine; ATTEND Internal Medicine
DX: N39.0 Urinary tract infection, site not specified (principal); K55.21 Angiodysplasia of colon with hemorrhage; K57.93 Diverticulitis of intestine, part unspecified, without perforation or abscess with bleeding; K62.5 Hemorrhage of anus and rectum; M06.9 Rheumatoid arthritis, unspecified; I10 Essential (primary) hypertension; T45.515A Adverse effect of anticoagulants, initial encounter; E03.9 Hypothyroidism, unspecified; K59.00 Constipation, unspecified; G47.00 Insomnia, unspecified; D64.9 Anemia, unspecified; F32.9 Major depressive disorder, single episode, unspecified; E86.0 Dehydration; Z96.641 Presence of right artificial hip joint; Z20.828 Contact with and (suspected) exposure to other viral communicable diseases; Z79.899 Other long term (current) drug therapy; Y92.89 Other specified places as the place of occurrence of the external cause

== ENCOUNTER 2021-05-10 18:22 | Emergency (ER) | payer OTHER ==
[~2021-05-10] VITALS: Ht 160 cm; Wt 41.7 kg
[~2021-05-10 18:22] MED LIST changes: +CEFDINIR300 MG PO; +MIRTAZAPINE15 M2 PO; -PROZAC10 M1 PO; +PROZAC40 MG PO; +SENNA8.6 MG PO; +ZOFRAN4 MG PO
[2021-05-10 18:41] VITALS: BP 114/64
[2021-05-11] MEDS ORDERED: LASIX 20 MG TAB20 MG PO (12:12)
== END 2021-05-10 20:16 | disposition left against medical advice (07) ==
LOC: M.ERS 18:22
DX: R53.1 Weakness (principal); Z20.822 Contact with and (suspected) exposure to COVID-19; R53.83 Other fatigue; E86.0 Dehydration; Z53.21 Procedure and treatment not carried out due to patient leaving prior to being seen by health care provider

== ENCOUNTER 2021-05-11 08:51 | Emergency (ER) | payer OTHER ==
[~2021-05-11] VITALS: Ht 160 cm; Wt 41.7 kg
[2021-05-11 10:16] LABS: ABSOLUTE BASOPHILS 0.1 thou/uL (0.0-0.2); ABSOLUTE EOSINOPHILS 0.2 thou/uL (0.0-0.7); ABSOLUTE LYMPHOCYTES 1.3 thou/uL (0.8-5.3); ABSOLUTE MONOCYTES 0.1 thou/uL (0.0-1.2); ABSOLUTE NEUTROPHILS 6.2 thou/uL (1.6-8.1); BASOPHILS 1.3 %; HEMATOCRIT 34.9 % (37.0-47.0); HEMOGLOBIN 11.7 gm/dL (12.0-15.0); LYMPHOCYTES 16.4 %; MCH 32.3 pg (26.0-34.0); MCHC 33.6 g/dL (28.0-37.0); MCV 96.1 fL (80.0-100.0); MONOCYTES 1.5 %; MPV 7.4 fl. (7.2-11.1); NUCLEATED RBCS 0 /100WBC; PLATELET COUNT* 348 thou/uL (150-400); POLYS 78.8 %; RBC 3.64 mil/uL (4.20-5.00); RDW-CV 16.8 % (10.5-14.5); WBC 7.9 thou/uL (4.0-11.0)
[2021-05-11 10:25] LABS: CALCIUM 8.7 mg/dL (8.5-10.1); CREATININE 0.7 mg/dL (0.6-1.3); POTASSIUM 3.8 mmol/L (3.5-5.1)
[2021-05-11 10:35] LABS: ALBUMIN 3.3 g/dL (3.4-5.0); TOTAL BILIRUBIN 0.4 mg/dL (<0.1-1.0); TOTAL PROTEIN 6.9 g/dL (6.4-8.2)
[2021-05-11 10:50] LABS: URINE BILIRUBIN NEGATIVE (Negative); URINE BLOOD NEGATIVE (Negative); URINE CLARITY CLEAR; URINE COLOR YELLOW; URINE GLUCOSE-RANDOM NEGATIVE (Negative); URINE KETONES NEGATIVE (Negative); URINE LEUKOCYTES-REFLEX NEGATIVE (Negative); URINE NITRITE-REFLEX NEGATIVE (Negative); URINE PROTEIN NEGATIVE (Negative)
[2021-05-11] MEDS ORDERED: LASIX 20 MG TAB20 MG PO (12:12)
[2021-05-11 12:46] VITALS: BP 135/78
--- NOTE | 2021-05-11 14:36 | EKG ---
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 : 1930 Requested By: Maulik Jaramillo Order Number: [id number] MD: Gilbert Chung Measurements Intervals [place] Rate: 73 P: SC: QRS: -18 QRSD: 186 T: 164 QT: 460 QTc: 507 Interpretive Statements Atrial fibrillation with rare PVC Left bundle branch block Compared to ECG 08/12/2020 17:34:42 Sinus rhythm no longer present Atrial fibrillation is noted with rare PVCs Prolonged QT interval no longer present Electronically Signed On 05-11-2021 14:36:00 CDT by Gilbert Chung [email or web address] <ELECTRONICALLY SIGNED> By: Gilbert Chung MD, [facility] 05/11/21 1436 0936 0936 Gilbert Chung MD, FAC /EPI
--- NOTE | 2021-05-11 14:37 | EKG ---
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: : 1930 Requested By: Maulik Jaramillo Order Number: [id number] MD: Gilbert Chung Measurements Intervals [place] Rate: 59 P: -14 MA: 240 QRS: -46 QRSD: 185 T: 135 QT: 504 QTc: 500 Interpretive Statements Sinus rhythm Multiple premature complexes, vent & supraven Prolonged MA interval Left bundle branch block Compared to ECG 05/11/2021 09:36:55 First degree AV block now present Atrial fibrillation no longer present Electronically Signed On 05-11-2021 14:36:54 CDT by Gilbert Chung [email or web address] <ELECTRONICALLY SIGNED> By: Gilbert Chung MD, FAC 05/11/21 1436 1131 1131 Gilbert Chung MD, FAC /EPI
== END 2021-05-11 12:47 | disposition home or self-care (01) ==
LOC: M.ERS 08:51
PROVIDERS: Family Medicine
DX: R53.1 Weakness (principal); R60.9 Edema, unspecified; I10 Essential (primary) hypertension; Z79.899 Other long term (current) drug therapy; Z87.891 Personal history of nicotine dependence